=== PATIENT | male | born 1930 | race Caucasian/White ===

== ENCOUNTER 2016-10-01 08:01 | Day surgery (SDC) | payer MEDICARE ==
[~2016-10-01] VITALS: Ht 167.6 cm; Wt 66.8 kg
[~2016-10-01 08:01] MED LIST: ASPI81TA85 PO; ATOR1TAB21 PO; FOLI1TAB4 PO; HYDR25TA6 PO; KEPP250T5 PO; MAGN1TAB25 PO; POTA10CA32 PO; PRAD75CA3 PO
[2016-10-01] MEDS ORDERED: LR 1,000 ML IV ONE (08:30)
[2016-10-01] MEDS ORDERED: PROPOFOL 200 MG/20 ML VIAL As Ordered ONE (09:46)
[2016-10-01] MEDS ORDERED: LIDOCAINE 2% INJ 100 MG/5 ML SDV (FOR ANES.) As Ordered ONE (09:46)
[2016-10-01] MEDS ORDERED: MIDAZOLAM INJ 2 MG/2 ML VIAL (J2250) As Ordered ONE (09:47)
[2016-10-01] MEDS ORDERED: fentaNYL 100 MCG/2 ML INJECTION (J3010) As Ordered ONE (09:48)
[2016-10-01] MEDS ORDERED: ISOVUE-300 61% 50ML VIAL (Q9967) As Ordered ONE (09:53)
[2016-10-01] MEDS ORDERED: AMIODARONE HCL 150 MG/100 ML PREMIXED BAG (NEXTERONE) As Ordered ONE (09:53)
[2016-10-01] MEDS ORDERED: ceFAZolin 2 GM/D5W 50 ML IV BAG (J0690) As Ordered ONE (10:30)
[2016-10-01] MEDS ORDERED: LIDOCAINE 1% SDV INJ 30 ML VIAL As Ordered ONE (10:51)
--- NOTE | 2016-10-01 12:51 | REP ---
Portable chest x-ray: Sitting AP view. History: Postop in PACU. Pacemaker. Comparison study July 14, 2016. Findings: A bipolar pacemaker is inserted in the right heart via the left side. Skin sukhjinder are seen adjacent to the power plant. There is no visible pneumothorax. Cardiomediastinal silhouette is unchanged. The aorta is somewhat tortuous. Impression: Pacemaker inserted. No complication is seen. Signed by Dev Moreland MD 10/01/2016 04:40 P
[2016-10-01] MEDS ORDERED: ACETAMINOPH W/CODEINE #3 TAB UD PO PRN (13:00)
[2016-10-01] MEDS ORDERED: ACETAMINOPHEN TAB 650MG DOSE (2X325MG) PO PRN (13:00)
[2016-10-01] MEDS ORDERED: fentaNYL 100 MCG/2 ML INJECTION (J3010) IV PRN (13:00)
[2016-10-01 13:15] VITALS: BP 102/63
--- NOTE | 2016-10-01 13:15 | RO ---
DATE OF PROCEDURE: 10/01/2016 PROCEDURE: 1. Implantation of permanent dual-chamber pacemaker. 2. Explantation of loop recorder. 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 Amari Velasquez MEDICAL APPLIANCE MAKER: ANESTHESIOLOGIST: Dr. Fallon PREOPERATIVE DIAGNOSIS: Recurrent syncope due to intermittent sinus arrest. POSTOPERATIVE DIAGNOSIS: Recurrent syncope due to intermittent sinus arrest. ANESTHESIA: Monitored local anesthesia. CLINICAL SUMMARY: This 86-year-old, , father of three grown children, retired, resident of [place], [place], has been followed by Dr. Derrick Jasmine for hypertensive heart disease, prior deep vein thrombosis (DVT) and pulmonary embolism with pulmonary hypertension, abnormal electrocardiogram (EKG), and recurrent syncopal spells. Following a negative electrophysiological study on 08/22/2016, an internal loop recorder was implanted. Recently, the patient was found to have suffered a recurrent near syncopal spell with loop recorder documenting significant sinus bradycardia and sinus arrest with asystolic pauses leading to referral to my practice for a permanent dual-chamber pacemaker implant. The patient claims to usually do as he wishes, ultimately limited by fatigue. Prior history of gastroesophageal reflux/heartburn, prior smoker and also suffered de la cruz's lung. He has an intermittent cough, but does not feel particularly limited by dyspnea. Does have random intermittent palpitations of fleeting duration. On examination, the patient is quite hard of hearing, but of medium body build with a slightly barrel-chest. Heart rate 94 beats per minute and regular. Blood pressure 102/72 sitting. Respiratory rate 18 per minute. Body mass index (BMI) 22.9. No pallor or icterus. Normal oral moisture. Multiple missing teeth. Trachea midline. Neck veins were at the level sternal angle. Increased anteroposterior chest diameter with mild pectus excavatum Implantable loop recorder incision left parasternal region. Slightly reduced chest excursion with good air entry over both lung pritchard with no inspiratory rales and only slight prolongation of expiration. Apical impulse not palpable. Heart sounds were distant with a soft systolic ejection murmur. Normal carotid upstrokes. Peripheral pulses were symmetrical and normal. No dependent edema. Abdomen: Soft. Blood work 07/13/2016 showed normal complete blood count with hemoglobin of 13.7 and platelet count 257. Electrolytes were normal with potassium 4.8, BUN 19, creatinine 1.5, and glucose 89. Normal magnesium level. Negative troponin I level. Previously normal ultra sensitive TSH. Chest x-ray on 07/14/2016 showed enlarged heart with calcified aorta, somewhat tortuous prominent central pulmonary arteries, without pulmonary venous congestion, hyperinflated lung pritchard with underlying fibrosis, and minor right basilar atelectasis. Loop recorder anterior chest, IVC filter over lower lumbar spine. Degenerative changes of his shoulder. EKG showed sinus rhythm at 94 BPM, left atrial conduction disturbance, marked first-degree AV block with left axis deviation - left anterior hemiblock, somewhat low voltages with prominent R wave V1 and V2, persistent S waves in V5 and V6 consistent with body habitus and pulmonary disease. No changes from 09/03/2016. DESCRIPTION OF PROCEDURE: With the patient in the fasting state having signed informed consent and receiving Ancef 2 grams IV premedication, the patient was taken to the operating theater. Numerous skin electrodes were applied to facilitate continuous electrocardiographic monitoring. The left subclavian region was prepped and draped in the usual fashion. The skin was infiltrated with 1% Xylocaine and the left axillary vein was catheterized using the micropuncture technique. A 5 cm linear incision was made several centimeters below and parallel to the left clavicle. Dissection was carried down to the level of pectoralis fascia and a pocket was fashioned below the level of incision line. Two bipolar screw-in active fixation steroid eluting pacing leads were then positioned to the right ventricular apex and high right atrial appendage under fluoroscopic electrocardiographic control. The right ventricular lead ([employer], model # LBB4658 M/58, serial # [id number]) measurements were: stimulation threshold 0.6 V/0.4 ms/impedance 1370 ohms. The R wave amplitude measured 8.8 mV. The atrial lead ([employer], model # HOL9234F/52, serial # [id number]) measurements were: stimulation threshold 1.5 V/0.4 ms/impedance 591 ohms. The P wave amplitude measured 2.4 mV. These leads were secured in position with sleeves sutured at their insertion site. They were then connected to a dual-chamber pulse generator ([employer] (Assurity MRI compatible) model # AR2191, serial # [id number]) and appropriate DDD pacing was documented. The generator was placed in the pocket and secured in position with a suture through the upper right-hand corner of the epoxy header. The subcutaneous tissues were approximated using a running chromic suture and the skin was closed using sukhjinder. A dry dressing was applied. The patient was returned to recovery room in good condition. Estimated blood loss 20 mL. No apparent complications. Postoperative chest x-ray showed good lead position with no pneumothorax. Postoperative EKG showed a normal sinus rhythm at 79 BPM with spontaneous AV conduction. The patient will be monitored overnight on telemetry and followup PA and left lateral chest x-ray and EKG will be obtained in the morning. We will also reinterrogate his device at that time, but anticipate he will be able to be discharged prior to noon. DISCHARGE RECOMMENDATIONS AND MEDICATIONS: The patient will be requested to perform light activities of daily living with his left arm and avoid getting his incision wet until his wound is checked and his sukhjinder removed in our office 10/08/2016 at 2:15 p.m. Subsequent followup will be arranged through Dr. Jasmine's office. He has been encouraged to contact us promptly for any abnormal erythema, swelling or discharge. His medications will continue of hydrochlorothiazide 6.25 mg daily, potassium chloride 10 mEq daily, aspirin 81 mg daily, magnesium oxide 400 mg daily, folic acid 1 mg daily, levetiracetam 250 mg twice a day, atorvastatin 10 mg at bedtime, Excedrin Migraine 1 or 2 tablets as needed headache. His Pradaxa 75 mg twice a day will be resumed 10/03/2016. COPY TO: Dr Dar [facility]asmine [facility]
[2016-10-01] MEDS: levETIRAcetam 250MG TABLET (KEPPRA) PO SCH ×2 (13:58→20:59)
[2016-10-01] MEDS: POTASSIUM CHLORIDE 10 MEQ SR TABLET PO SCH (13:58)
[2016-10-01] MEDS: ASPIRIN 81 MG ENTERIC TAB PO SCH (13:58)
[2016-10-01] MEDS: LR 1,000 ML IV SCH (13:58)
[2016-10-01] MEDS: MAGNESIUM OXIDE 400 MG TAB (MAG-OX) PO SCH (13:58)
[2016-10-01] MEDS: FOLIC ACID 1 MG TAB PO SCH (13:58)
[2016-10-01 15:00] VITALS: BP 110/69
[2016-10-01] MEDS: HYDROCHLOROthiazide 6.25MG PER 1/4TAB PO SCH (15:19)
[2016-10-01] MEDS: ATORVASTATIN 20 MG TAB PO SCH (15:19)
[2016-10-01 16:00] VITALS: BP 132/83
[2016-10-01] MEDS: ceFAZolin SOD 1 GM in D5W MINI-BAG PLUS 50 ML IV SCH (18:06)
--- NOTE | 2016-10-01 19:10 | ECGEPIP ---
Stationary ECG Study [facility] Test Date: 2016-10-01 Pat Name: LINWOOD ALMONTE Department: Room: [place] [address] Gender: M [facility] Dentist: CRUZITO : 1930 Requested By: Amari Velasquez Order Number: [id number] Reading MD: Amari Velasquez Measurements Intervals [place] Rate: 77 P: 38 MN: 287 QRS: -36 QRSD: 92 T: 9 QT: 397 QTc: 452 Interpretive Statements Normal sinus rhythm. First-degree AV block. Left axis deviation; left anterior hemiblock? Prominent voltage in aVL; LVH by Torres criteria No prior tracing for comparison. Electronically Signed On 10-01-2016 19:10:09 EDT by Amari Velasquez
[2016-10-01 20:00] VITALS: BP 112/66
[2016-10-02] VITALS: BP 117/69
[2016-10-02] MEDS: ceFAZolin SOD 1 GM in D5W MINI-BAG PLUS 50 ML IV SCH ×2 (03:09→10:39)
[2016-10-02 04:00] VITALS: BP 100/58
[2016-10-02] MEDS: LR 1,000 ML IV SCH (07:00)
[2016-10-02 08:00] VITALS: BP 115/85
[2016-10-02] MEDS: ASPIRIN 81 MG ENTERIC TAB PO SCH (08:31)
[2016-10-02] MEDS: levETIRAcetam 250MG TABLET (KEPPRA) PO SCH (08:31)
[2016-10-02] MEDS: ATORVASTATIN 20 MG TAB PO SCH (08:31)
[2016-10-02] MEDS: POTASSIUM CHLORIDE 10 MEQ SR TABLET PO SCH (08:31)
[2016-10-02] MEDS: MAGNESIUM OXIDE 400 MG TAB (MAG-OX) PO SCH (08:31)
[2016-10-02] MEDS: FOLIC ACID 1 MG TAB PO SCH (08:31)
--- NOTE | 2016-10-02 08:45 | REP ---
PA and lateral chest: Comparison is a portable chest dated 10/01/2016. There is a dual-chamber pacemaker entering from left with surgical sukhjinder adjacent to the pacemaker pack. There is no pneumothorax or pleural fluid collection. Lung pritchard are clear. Cardiac size is normal. The jovon, mediastinum, and bony thorax are unremarkable. A [place] filter is noted in the abdominal vena cava at the inferior film margin. Signed by Tan Soni MD 10/02/2016 08:36 A
[2016-10-02] MEDS: HYDROCHLOROthiazide 6.25MG PER 1/4TAB PO SCH (10:39)
--- NOTE | 2016-10-02 22:32 | ECGEPIP ---
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 Normal appearing QRS complexes and Q waves were interpretable. Consider repeat ECG. Electronically Signed On 10-02-2016 22:32:16 EDT by Sundar Green
[2016-10-03] MEDS ORDERED: DABIGATRAN ETEXILATE 75 MG CAP (PRADAXA) PO SCH (09:00)
== END 2016-10-02 15:57 | disposition home or self-care (01) ==
LOC: M SDC 08:01 → M PCU 13:08 → M SDC 10-02 15:57
PROVIDERS: ATTEND Internal Medicine Cardiovascular Disease
DX: I49.5 Sick sinus syndrome (principal); R55 Syncope and collapse; I11.9 Hypertensive heart disease without heart failure; I27.89 Other specified pulmonary heart diseases; K21.9 Gastro-esophageal reflux disease without esophagitis; R06.02 Shortness of breath; Z79.82 Long term (current) use of aspirin; Z79.899 Other long term (current) drug therapy
CPT/HCPCS: 33208; 33284; 71010; 71020; 76000; 93005; 96374; 96376; C1785; C1898; J0690; J2250; J3010; Q9967

== ENCOUNTER 2018-01-06 06:06 | Day surgery (SDC) | payer MEDICARE ==
[2018-01-06] MEDS: PROPARACAINE 0.5% OPHTH SOL 15ML OS (06:35)
[2018-01-06] MEDS: OFLOXACIN 0.3 % (OCUFLOX) OPTH SOL 5ML OS (06:36)
[2018-01-06] MEDS: PHENYLEPHRINE 2.5% OPHTH SOL 2ML OS (06:36)
[2018-01-06] MEDS: TROPICAMIDE 1% OPHTH SOLN 2ML OS (06:36)
[2018-01-06] MEDS ORDERED: MIDAZOLAM INJ 2 MG/2 ML VIAL (J2250) As Ordered (07:06)
[2018-01-06] MEDS ORDERED: fentaNYL 100 MCG/2 ML INJECTION (J3010) As Ordered (07:06)
[2018-01-06] MEDS: CEFUROXIME 1MG/0.1ML INTRACAMERAL INJ As Ordered (07:32)
[2018-01-06] MEDS: BALANCED SALT IRRIGATION SOLUTION 500ML BAG (FOR OR EYE MACHINE) As Ordered (07:32)
[2018-01-06] MEDS: DUOVISC (0.50ML VISCOAT/0.55ML PROVISC) OPHTH KIT As Ordered ×2 (07:32→07:50)
[2018-01-06] MEDS: POVIDONE-IODINE 5% OPHTH PREP SOL 30ML As Ordered (07:32)
[2018-01-06] MEDS: LIDOCAINE 0.75%/EPINEPHRINE 0.025% IN BSS 1ML SYR INTRACAMERAL (OR ONLY) As Ordered (07:32)
== END 2018-01-06 08:40 | disposition home or self-care (01) ==
LOC: M SDC 06:06
DX: H25.11 Age-related nuclear cataract, right eye (principal); H40.10X2 Unspecified open-angle glaucoma, moderate stage; H52.221 Regular astigmatism, right eye; I10 Essential (primary) hypertension; E78.5 Hyperlipidemia, unspecified; Z95.0 Presence of cardiac pacemaker; Z79.01 Long term (current) use of anticoagulants; Z79.899 Other long term (current) drug therapy
CPT/HCPCS: 66984

== ENCOUNTER 2018-01-20 08:15 | Day surgery (SDC) | payer MEDICARE ==
[~2018-01-20 08:15] MED LIST changes: -ASPI81TA85 PO; -ATOR1TAB21 PO; -FOLI1TAB4 PO; -HYDR25TA6 PO; -KEPP250T5 PO; -MAGN1TAB25 PO; +MIDAZOLAM INJ 2 MG/2 ML VIAL (J2250) As Ordered; -POTA10CA32 PO; -PRAD75CA3 PO
[2018-01-20] MEDS: PROPARACAINE 0.5% OPHTH SOL 15ML OD (09:39)
[2018-01-20] MEDS: PHENYLEPHRINE 2.5% OPHTH SOL 2ML OD (09:39)
[2018-01-20] MEDS: TROPICAMIDE 1% OPHTH SOLN 2ML OD (09:39)
[2018-01-20] MEDS: OFLOXACIN 0.3 % (OCUFLOX) OPTH SOL 5ML OD (09:39)
[2018-01-20] MEDS ORDERED: fentaNYL 100 MCG/2 ML INJECTION (J3010) As Ordered (10:40)
[2018-01-20] MEDS: BALANCED SALT IRRIGATION SOLUTION 500ML BAG (FOR OR EYE MACHINE) As Ordered (10:46)
[2018-01-20] MEDS: CEFUROXIME 1MG/0.1ML INTRACAMERAL INJ As Ordered (10:46)
[2018-01-20] MEDS: LIDOCAINE 0.75%/EPINEPHRINE 0.025% IN BSS 1ML SYR INTRACAMERAL (OR ONLY) As Ordered (10:46)
[2018-01-20] MEDS: DUOVISC (0.50ML VISCOAT/0.55ML PROVISC) OPHTH KIT As Ordered ×2 (10:46)
[2018-01-20] MEDS: POVIDONE-IODINE 5% OPHTH PREP SOL 30ML As Ordered (10:46)
== END 2018-01-20 11:50 | disposition home or self-care (01) ==
LOC: M SDC 08:15
DX: H25.11 Age-related nuclear cataract, right eye (principal); H40.1112 Primary open-angle glaucoma, right eye, moderate stage; I10 Essential (primary) hypertension; E78.00 Pure hypercholesterolemia, unspecified; Z79.899 Other long term (current) drug therapy; Z79.01 Long term (current) use of anticoagulants; Z79.82 Long term (current) use of aspirin; Z86.718 Personal history of other venous thrombosis and embolism; Z95.0 Presence of cardiac pacemaker
CPT/HCPCS: 66984

== ENCOUNTER 2018-07-30 21:37 | Inpatient (IN) | payer MEDICARE ==
[~2018-07-30] VITALS: Ht 167.6 cm; Wt 61.1 kg
[~2018-07-30 21:37] MED LIST changes: +AMIO200T PO; +ASPI81TA85 PO; +ATOR1TAB21 PO; +ELIQ2.5T PO; +FOLI1TAB11 PO; +FURO40TA2 PO; +HYDR25TA6 PO; +KEPP250T5 PO; +MAGN1TAB26 PO; +METO1TAB87 PO; -MIDAZOLAM INJ 2 MG/2 ML VIAL (J2250) As Ordered; +POTA10CA32 PO; +POTA1TAB23 PO; +PRAD75CA5 PO; +PRAV20TA2 PO
[2018-07-30 23:59] VITALS: BP 115/59
[2018-07-31] MEDS ORDERED: LR 1,000 ML IV SCH (00:15)
[2018-07-31] MEDS ORDERED: GLUCAGON FOR INJ 1 MG VIAL (J1610) SC PRN (00:15)
[2018-07-31] MEDS ORDERED: MOM 30ML SUSPENSION UDC PO PRN (00:15)
[2018-07-31] MEDS ORDERED: ACETAMINOPHEN TAB 650MG DOSE (2X325MG) PO PRN (00:15)
[2018-07-31] MEDS ORDERED: DEXTROSE 50% 50 ML SYRINGE IV PRN (00:15)
[2018-07-31] MEDS ORDERED: GLUCOSE 4 GM CHEW TABLET PO PRN (00:15)
[2018-07-31] MEDS ORDERED: MAALOX 30 ML SUSP *UDC PO PRN (00:15)
[2018-07-31 00:26] LABS: HEMATOCRIT 32.3 % (42.0-52.0); HEMOGLOBIN 10.6 g/dl (13.5-17.5); MEAN CORPUSCULAR HEMOGLOBIN 32.1 pg (27.0-33.0); MEAN CORPUSCULAR HGB CONC 32.8 g/dl (32.0-36.5); MEAN CORPUSCULAR VOLUME 97.9 fl (80.0-96.0); PLATELET COUNT, AUTOMATED 215 10^3/uL (150-450); WHITE BLOOD COUNT 24.9 10^3/uL (4.0-10.0)
[2018-07-31] MEDS ORDERED: LEVE250T5 PO (00:40)
[2018-07-31] MEDS ORDERED: KEPP250T5 PO (00:40)
[2018-07-31] MEDS ORDERED: AMIO10TA PO (00:40)
[2018-07-31] MEDS ORDERED: BACK500T PO (00:46)
[2018-07-31] MEDS ORDERED: EXCETAB44 PO (00:47)
[2018-07-31] MEDS ORDERED: PATIENT COMMENTS (00:49)
[2018-07-31 00:51] LABS: ALBUMIN 2.2 GM/DL (3.2-5.2); BILIRUBIN,TOTAL 0.8 MG/DL (0.2-1.0); CALCIUM LEVEL 7.7 MG/DL (8.8-10.2); CREATININE FOR GFR 1.78 MG/DL (0.70-1.30); GLOMERULAR FILTRATION RATE 38.7 (>35); POTASSIUM SERUM 3.7 MEQ/L (3.5-5.1)
[2018-07-31] MEDS ORDERED: VANCOMYCIN HCL 1,000 MG, VIAL MATE ADAPTER 1 EACH in D5W 250 ML IV ONE (01:00)
[2018-07-31 01:21] LABS: INR 1.33; PROTHROMBIN TIME 16.7 SECONDS (12.1-14.4)
--- NOTE | 2018-07-31 01:43 | HPEPDOC ---
General Date of Admission July 30, 2018 at 23:32 Chief Complaint The patient is a 88-year-old male admitted with a reason for visit of Pneumonia ,Cellulitis. Source: Patient, RN/MD, Old records History of Present Illness Mr. Hoang is an 88 years old man who presented to [facility] ER y afternoon for evaluation of progressive pain and swelling on the left Buttock after reportedly bitten by a bee. In the ER, pt was afebrile and hemodynamically stable. he had a WBC of 25K and a Lactate level of 2.5. There is very tender 4 x cm hard subcutaneous induration with central skin opening and yellow pus in the area. He was given a dose IV Zosyn in the ER and transferred here for further care because they did not have bed for admission at [facility]. Pt has no signs of volume overload. Mental status is normal. CXR at [facility] accidently showed RLL infiltrates. Pt c/o sneezes only; no cough, SOB or chest pain. Home Medications Scheduled Amiodarone HCl (Pacerone) 100 Mg Tablet, 100 MG PO DAILY, (Reported) Apixaban (Eliquis) 2.5 Mg Tab, 2.5 MG PO BID, (Reported) Aspirin (Aspir 81) 81 Mg Tab, 81 MG PO DAILY, (Reported) Folic Acid (Folic Acid) 1 Mg Tab, 1 MG PO DAILY, (Reported) Furosemide (Furosemide) 40 Mg Tab, 40 MG PO DAILY, (Reported) Levetiracetam (Levetiracetam) 250 Mg Tablet, 250 MG PO BID, (Reported) Magnesium Oxide (Magnesium Oxide) 400 Mg Tab, 400 MG PO DAILY, (Reported) Metoprolol Tartrate (Metoprolol Tartrate) 25 Mg Tab, 25 MG PO BID, (Reported) Potassium Chloride (Potassium Chloride) 10 Meq Tab, 10 MEQ PO DAILY, (Reported) Pravastatin Sodium (Pravastatin Sodium) 20 Mg Tab, 20 MG PO DAILY, (Reported) Scheduled PRN Acetaminophen/Caffeine (Excedrin Tension Headache Cplt) 1 Each Tablet, 1 EACH PO Q6H PRN for HEADACHE OR PAIN, (Reported) Miscellaneous Medications [Patient Comments] , (Reported) PATIENT STATES HE'S REASONABLY SURE THE LAST TIME HE TOOK HIS MEDICATIONS WAS 2 DAYS AGO. 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, HTN, AF, COPD, HLD Surgical History Appendectomy Family History Significant Family History: No pertinent family hx Social History * Smoker: Denies Alcohol: Denies Drugs: denies A-FIB/CHADSVASC A-FIB History Current/History of A-Fib/PAF?: Yes Current Oral Anticoagulant The: No Treatment Reason Anticoagulant not given: Recent/upcomin procedure Review of Systems Constitutional: Reports: Chills; Denies: Fever, Malaise Eyes: Denies: Pain ENT: Denies: Head Aches Skin: Reports: Lesions; Denies: Rash Pulmonary: Denies: Dyspnea, Cough Cardiovascular: Denies: Chest Pain, Edema Gastrointestinal: Denies: Nausea, Vomiting, Abdominal Pain, Diarrhea Genitourinary: Denies: Dysuria Musculoskeletal: Denies: Neck Pain, Back Pain Neurological: Denies: Weakness, Numbness Psych: Reports: Mood Normal; Denies: Anxiety Physical Examination General Exam: Positive: Alert, Cooperative, No Acute Distress Eye Exam: Positive: PERRLA ENT Exam: Positive: Atraumatic Neck Exam: Positive: Supple; Negative: JVD Chest Exam: Positive: Clear to auscultation, Normal air movement Heart Exam: Positive: Rate Normal, Regular Rhythm Abdomen Exam: Positive: Normal bowel sounds, Soft; Negative: Tenderness Extremity Exam: Positive: Normal pulses; Negative: Edema Skin Exam: Positive: Nl turgor and temperature, Lesion (as mentioned in HPI) Neuro Exam: Positive: Normal Speech, Strength at 5/5 X4 ext Psych Exam: Positive: Mental status NL, Mood NL Vital Signs Vital Signs Date Time Temp Pulse Resp B/P (MAP) Pulse Ox O2 Delivery O2 Flow Rate FiO2 07/30/18 23:59 100.4 80 18 115/59 (77) 94 Laboratory Data Labs 24H Laboratory Tests 2 07/31/18 00:19: Nucleated Red Blood Cells % (auto) 0.0, Prothrombin Time 16.7H, Prothromb Time International Ratio 1.33, Anion Gap 8, Glomerular Filtration Rate 38.7, Lactic Acid Level 1.6, Blood Urea Nitrogen 25H, Creatinine 1.78H, Sodium Level 139, Potassium Level 3.7, Chloride Level 102, Carbon Dioxide Level 29, Calcium Level 7.7L, Aspartate Amino Transf (AST/SGOT) 12, Alanine Aminotransferase (ALT/SGPT) 14, Alkaline Phosphatase 94, Total Bilirubin 0.8, Total Protein 7.0, Albumin 2.2L, Albumin/Globulin Ratio 0.46L CBC/BMP Laboratory Tests 07/31/18 00:19 Red Blood Count 3.30 L, Mean Corpuscular Volume 97.9 H, Mean Corpuscular Hemoglobin 32.1, Mean Corpuscular Hemoglobin Concent 32.8, Red Cell Distribution Width 13.9, Calcium Level 7.7 L, Aspartate Amino Transf (AST/SGOT) 12, Alanine Aminotransferase (ALT/SGPT) 14, Alkaline Phosphatase 94, Total Bilirubin 0.8, Total Protein 7.0, Albumin 2.2 L Microbiology Microbiology 07/31/18 Blood Culture, Received Pending Assessment/Plan Left Buttock Cellulitis and Abscess - Admit to inpatient - IV Vanco and Zosyn; Wound, blood c/s - Surgery consulted with Dr. Pond; I&D in the morning. NPO now; gentle IV fluid - CT - Hold Xarelto - Continue home meds for other chronic illness; avoid diuretic and excessive BP meds for now. RLL Infiltrates reported on Cartage CXR; pt has no symptoms of Pneumonia - CT chest; pt already on abx for abscess. AF, DVT, PE - Holding Xarelto for now for procedure in the morning - Heparin sc in the meantime. Plan / VTE VTE Prophylaxis Ordered?: Yes VTE Exclusion Mechanical Proph: N/A:VTE Prophy Ordered VTE Exclusion Pharmacological: N/A:VTE Prophy Ordered Plan Anticipated Discharge: Home DASH LIM MD July 31, 2018 01:42
--- NOTE | 2018-07-31 02:45 | REPVR ---
EXAM: CT Chest Without Contrast EXAM DATE/TIME: 07/31/2018 1:53 AM CLINICAL HISTORY: 88 years old, male; Condition or disease; Lung condition and disease; Pneumonia; Additional info: Evalaute for left buttock abscess TECHNIQUE: Imaging protocol: Axial computed tomography images of the chest without intravenous contrast. Coronal and sagittal reformatted images were created and reviewed. Radiation optimization: All CT scans at this facility use at least one of these dose optimization techniques: automated exposure control; mA and/or kV adjustment per patient size (includes targeted exams where dose is matched to clinical indication); or iterative reconstruction. COMPARISON: CR Chest, 2 view PA, Lat 10/02/2016 8:15 AM FINDINGS: Tubes, catheters and devices: Pacemaker in position from the left. Lungs: Slight interstitial prominence with mild fibro-atelectatic change, greatest in the lower lobes. There are scattered areas of infiltrate and consolidation with some having a nodular appearance nodules are not excluded. Pleural space: Trace bilateral pleural effusions. Heart: Coronary artery calcifications are present. The left atrium measures 4.5 cm in its AP dimension. Pulmonary arteries: The main pulmonary artery measures 26 mm. Aorta: The ascending thoracic aorta measures 36 mm. Lymph nodes: Small scattered mediastinal nodes which are within normal limits. Bones/joints: Ankylosis of much of the thoracic spine. Soft tissues: Unremarkable. IMPRESSION: 1. Borderline cardiomegaly with pacemaker. 2. Slight interstitial prominence with mild fibro-atelectatic change, greatest in the lower lobes and scattered areas of infiltrate and consolidation. Some have a nodular appearance and pulmonary nodules are not excluded. 3. Trace bilateral pleural effusions. Electronically signed by: Laureano Gu On 07/31/2018 02:44:42 AM
--- NOTE | 2018-07-31 02:51 | REPVR ---
EXAM: CT Abdomen and Pelvis Without Contrast EXAM DATE/TIME: 07/31/2018 1:53 AM CLINICAL HISTORY: 88 years old, male; Condition or disease; Abscess; Abscess location: Left buttock; Additional info: Abscess, R/O nectrotizing TECHNIQUE: Imaging protocol: Axial computed tomography images of the abdomen and pelvis without contrast. Coronal and sagittal reformatted images were created and reviewed. Radiation optimization: All CT scans at this facility use at least one of these dose optimization techniques: automated exposure control; mA and/or kV adjustment per patient size (includes targeted exams where dose is matched to clinical indication); or iterative reconstruction. COMPARISON: No relevant prior studies available. FINDINGS: Lungs: Slight interstitial prominence with mild bibasilar infiltrates, atelectasis and consolidation, left greater than right. There is question of a right middle lobe nodule measuring 5 mm. Pleural space: Trace bilateral pleural effusions. ABDOMEN: Liver: Normal. No mass. Gallbladder and bile ducts: Borderline distention of the gallbladder measuring 4.5 cm in diameter no gallstones by CT. Pancreas: Normal. No ductal dilation. Spleen: Normal. No splenomegaly. Adrenals: Normal. No mass. Kidneys and ureters: Normal. No hydronephrosis. Stomach and bowel: There is colonic diverticulosis without evidence of diverticulitis. Appendix: There are no changes of appendicitis. A normal appendix is not seen. PELVIS: Bladder: Unremarkable as visualized. Reproductive: Unremarkable as visualized. ABDOMEN and PELVIS: Intraperitoneal space: Normal. No free air. No significant fluid collection. Bones/joints: Grade 2 anterior listhesis of L5 relative to S1 with prominent interspace narrowing. Soft tissues: Subcutaneous induration and confluence in the medial buttocks, left greater than right with skin thickening. No definite abscess seen. Vasculature: There is an IVC filter in position. Lymph nodes: Normal. No enlarged lymph nodes. IMPRESSION: 1. Subcutaneous induration and confluence in the medial buttocks, left greater than right skin thickening which may reflect cellulitis or possibly phlegmon. No definite abscess is seen. 2. Trace bilateral pleural effusions with slight basal interstitial prominence and mild bibasilar infiltrates, atelectasis and consolidation, left greater than right. 3. IVC filter in position. 4. Borderline distention of the gallbladder. 5. Colonic diverticulosis without diverticulitis. Electronically signed by: Laureano Gu On 07/31/2018 02:51:11 AM
[2018-07-31 04:00] VITALS: BP 137/69
[2018-07-31] MEDS: PIPERACILLIN/TAZOBACTAM SOD 3.375 GM in D5W MINI-BAG PLUS 50 ML IV SCH ×4 (04:06→20:30)
--- NOTE | 2018-07-31 05:52 | PHACANCOPD ---
PHARMACY VANCOMYCIN DOSING Pt Demographics Demographics Patient Age:88 , Weight:63.500 , Gender: male Adjusted Body Weight Date: 07/31/18, Adjusted Body Weight: [63.5] Kg(ACTUAL WT) Vancomycin Vancomycin indication: BUTTOCK ABCESS,PNA Vancomycin Target Ranges: 15-20 mcg/ml Vancomycin Load Y/N: No Load Dose Date Time Vancomycin Load Dose: Date: Time: Vancomycin Dose Date: 07/31/18. Current Vancomycin Dose: [1 GM Q24H] Intermittent Dosing?: No Labs Labs Laboratory Tests 07/31/18 00:19 Red Blood Count 3.30 L, Mean Corpuscular Volume 97.9 H, Mean Corpuscular Hemoglobin 32.1, Mean Corpuscular Hemoglobin Concent 32.8, Red Cell Distribution Width 13.9, Calcium Level 7.7 L, Aspartate Amino Transf (AST/SGOT) 12, Alanine Aminotransferase (ALT/SGPT) 14, Alkaline Phosphatase 94, Total Bilirubin 0.8, Total Protein 7.0, Albumin 2.2 L Micro Microbiology 07/31/18 Blood Culture, Received Pending Creatinine Clearance Date:07/31/18. Creatinine Clearance: [26.3].CALCULATED Assessment and Plan Maintaining Current Dose?: Yes Reason for dose change: No Dose Change Pharmacist Note Pharmacist Note Date: 07/31/18. Pharmacist note:88 YOM transferred [facility] w/worsening pain/swelling in buttock area following insect bite.SCR=1.78,Calculated CRCL=26.3. ED administered 1 gram Vancomycin .Will continue with 1 gram iv q24h to begin 07/31@1999.Fri trough is scheduled for 08/01 1900-will continue to follow [facility] July 31, 2018 05:51
[2018-07-31] MEDS ORDERED: LIDOCAINE 1% MDV 20ML VIAL As Ordered ONE (07:42)
[2018-07-31] MEDS ORDERED: LIDOCAINE 1% MDV 20ML VIAL SC ONE (07:45)
[2018-07-31 07:47] VITALS: BP 127/61
[2018-07-31 08:05] LABS: HEMATOCRIT 34.5 % (42.0-52.0); HEMOGLOBIN 11.5 g/dl (13.5-17.5); MEAN CORPUSCULAR HEMOGLOBIN 32.6 pg (27.0-33.0); MEAN CORPUSCULAR HGB CONC 33.3 g/dl (32.0-36.5); MEAN CORPUSCULAR VOLUME 97.7 fl (80.0-96.0); PLATELET COUNT, AUTOMATED 218 10^3/uL (150-450); RED BLOOD COUNT 3.53 10^6/uL (4.30-6.10); WHITE BLOOD COUNT 29.1 10^3/uL (4.0-10.0)
[2018-07-31 08:31] LABS: CALCIUM LEVEL 8.2 MG/DL (8.8-10.2); CREATININE FOR GFR 1.66 MG/DL (0.70-1.30); GLOMERULAR FILTRATION RATE 41.9 (>35); POTASSIUM SERUM 3.5 MEQ/L (3.5-5.1)
[2018-07-31] MEDS: AMIODARONE 100MG TABLET (PACERONE) PO SCH (09:01)
[2018-07-31] MEDS: levETIRAcetam 250MG TABLET (KEPPRA) PO SCH ×2 (09:01→20:32)
[2018-07-31] MEDS: FOLIC ACID 1 MG TAB PO SCH (09:01)
[2018-07-31] MEDS: MAGNESIUM OXIDE 400 MG TAB (MAG-OX) PO SCH (09:01)
[2018-07-31] MEDS: ASPIRIN 81 MG ENTERIC TAB PO SCH (09:01)
[2018-07-31] MEDS: METOPROLOL TART 25 MG TABLET PO SCH ×2 (09:02→20:33)
--- NOTE | 2018-07-31 11:10 | CR ---
DATE OF CONSULTATION: 07/31/2018 REASON FOR CONSULTATION: Left buttock abscess. HISTORY OF PRESENT ILLNESS: The patient is an 88-year-old male who presented to [facility] emergency room yesterday with complaints of pain and swelling in the left buttock. He claims that he was stung by a bee about a week ago with increasing pain and swelling. He finally went to the emergency room (ER) complaining that he was not feeling well. He was found to be afebrile with a white count 25,000, elevated lactic acid level. He also a very tender lump in his left buttocks, so he was transferred here for evaluation because they did not have any beds for admission at [facility]. Currently, he can complains of lots of pain in his left upper abdomen as well as his left buttock. He claims that he cannot lay on it you know, he is lying on it as he was talking to me. No other complaints. Denies nausea, vomiting. No fevers or chills. No problems with urination or bowel movements. PAST MEDICAL HISTORY: Positive for congestive heart failure (CHF), deep venous thrombosis (DVT), pulmonary embolism (PE), hypertension, atrial fibrillation (AFib), chronic obstructive pulmonary disease (COPD), hyperlipidemia. PAST SURGICAL HISTORY: Appendectomy. ALLERGIES: NONE. HOME MEDICATIONS: Please see med rec. SOCIAL HISTORY: Denies drug, alcohol or tobacco abuse. FAMILY HISTORY: Noncontributory. REVIEW OF SYSTEMS: Pertinent positives and negatives as stated in the HPI. PHYSICAL EXAMINATION: General: Alert and oriented times three. No acute distress. Vital signs: Temperature 100.9, pulse 85, respirations 20, blood pressure 127/61, pulse oximetry 91% on room air. HEENT: Pupils equal, round, reactive to light and accommodation. Heart: S1, S2, regular rate and rhythm. Lungs: Clear to auscultation bilaterally. Abdomen: Soft, nontender, nondistended. Extremities: There is a large 5 cm area of erythema, induration over the left buttock. There is about 1.5 cm irregular shaped area in the middle of this that is nonblanching and appears to be early necrosis of the skin. There is oozing from the skin in this area but no large volumes of drainage. There is a significant induration not necessarily any discrete fluid collection palpable. LABORATORY DATA: White count 24.9 at midnight, up to 29.1 this morning, hemoglobin 11.5, platelets 218. Potassium 3.5. Creatinine 1.66. IMAGING: CT abdomen and pelvis shows subcutaneous induration and confluence in the medial buttocks, left greater than right. Skin thickening may reflect cellulitis or possible phlegmon. No definite abscess is seen. Trace bilateral pleural effusions with slight basal interstitial prominence. Inferior vena cava (IVC) filter is in position. Borderline distension of the gallbladder. Colonic diverticulosis. ASSESSMENT AND PLAN: The patient is an 88-year-old male with a large left buttock abscess. Recommendation is to proceed with incision and drainage. This can be done at the bedside. I planned a bedside procedure. The nursing staff was available to help me do the bedside incision and drainage. After obtaining consent from the patient, time-out was done to confirm proper patient and proper procedure. Following that the left buttock was sterilely prepped and draped with Betadine. Next, 5 mL of 1% lidocaine was injected into the abscess in the center of the necrotic portion. Once that was completed, a cruciate incision about 1 x 1 cm was made using a #15 blade scalpel. Once that was completed, cultures were obtained. Probing with a cotton tip applicator did show some slightly purulent bloody fluid. No large fluid collections of any kind. I irrigated with another 10 mL of lidocaine just to flush out what was there, covered the whole area with 4 x 4s and tape, thus ending procedure. The patient tolerated procedure well, had some improvement from his pain likely from the local was injected in the area,. We will order him a regular diet for now and continue to monitor him as appropriate.
[2018-07-31 12:00] VITALS: BP 109/55
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
[2018-07-31 16:00] VITALS: BP 105/56
[2018-07-31 20:00] VITALS: BP 115/61
[2018-07-31] MEDS: APIXABAN 2.5 MG TAB (ELIQUIS) PO SCH (20:32)
[2018-07-31] MEDS: VANCOMYCIN HCL 1,000 MG, VIAL MATE ADAPTER 1 EACH in D5W 250 ML IV SCH (20:34)
[2018-07-31] MEDS ORDERED: HEPARIN SOD (PORCINE) 5000 UNITS/ML VIAL SQ SCH (21:00)
[2018-07-31 23:59] VITALS: BP 112/57
[2018-08-01] MEDS: PIPERACILLIN/TAZOBACTAM SOD 3.375 GM in D5W MINI-BAG PLUS 50 ML IV SCH ×4 (02:51→21:21)
[2018-08-01 04:00] VITALS: BP 118/72
[2018-08-01 05:41] LABS: HEMATOCRIT 32.7 % (42.0-52.0); MEAN CORPUSCULAR HEMOGLOBIN 32.4 pg (27.0-33.0); MEAN CORPUSCULAR HGB CONC 33.6 g/dl (32.0-36.5); MEAN CORPUSCULAR VOLUME 96.2 fl (80.0-96.0); PLATELET COUNT, AUTOMATED 230 10^3/uL (150-450); WHITE BLOOD COUNT 22.6 10^3/uL (4.0-10.0)
[2018-08-01 05:44] LABS: CALCIUM LEVEL 8.4 MG/DL (8.8-10.2); CREATININE FOR GFR 1.92 MG/DL (0.70-1.30); GLOMERULAR FILTRATION RATE 35.4 (>35); POTASSIUM SERUM 3.4 MEQ/L (3.5-5.1)
[2018-08-01 07:54] VITALS: BP 151/68
[2018-08-01] MEDS: MAGNESIUM OXIDE 400 MG TAB (MAG-OX) PO SCH (09:19)
[2018-08-01] MEDS: FOLIC ACID 1 MG TAB PO SCH (09:19)
[2018-08-01] MEDS: PRAVASTATIN 20 MG TAB PO SCH (09:19)
[2018-08-01] MEDS: ASPIRIN 81 MG ENTERIC TAB PO SCH (09:19)
[2018-08-01] MEDS: levETIRAcetam 250MG TABLET (KEPPRA) PO SCH ×2 (09:19→20:43)
[2018-08-01] MEDS: APIXABAN 2.5 MG TAB (ELIQUIS) PO SCH ×2 (09:19→20:42)
[2018-08-01] MEDS: AMIODARONE 100MG TABLET (PACERONE) PO SCH (09:20)
[2018-08-01] MEDS: METOPROLOL TART 25 MG TABLET PO SCH ×2 (09:20→20:43)
--- NOTE | 2018-08-01 10:40 | IPNPDOC ---
Date Seen The patient was seen on 08/01/18. Progress Note SUBJECTIVE: Patient tells me that his bottom is not hurting as much. He complains of feeling weak. Otherwise patient denies chest pain, shortness, breath, nausea, vomiting, OBJECTIVE PHYSICAL EXAMINATION: VITAL SIGNS: Please see below. GENERAL: Pleasant disheveled elderly man sitting up in bed awake alert oriented speaking in complete sentences no acute distress eating breakfast HEENT: Mildly dry mucous membranes no elevation and CVP CARDIOVASCULAR: S1 S2 regular no additional heart sounds appreciated. RESPIRATORY: Clear to auscultation bilaterally. ABDOMINAL: Bowel sounds present abdomen soft and nontender EXTREMITIES: No clubbing, cyanosis, edema, left buttock abscess dressing c/d/i NEUROLOGICAL: Spontaneously moves all 4 extremities cranial 2 through 12 grossly intact, no gross focal deficits appreciated PSYCHOLOGICAL: Appropriate LABORATORY DATA, MICROBIOLOGY: Please see below. IMAGING STUDIES: CT chest:1. Borderline cardiomegaly with pacemaker. 2. Slight interstitial prominence with mild fibro-atelectatic change, greatest in the lower lobes and scattered areas of infiltrate and consolidation. Some have a nodular appearance and pulmonary nodules are not excluded. 3. Trace bilateral pleural effusions. CT abdomen:1. Subcutaneous induration and confluence in the medial buttocks, left greater than right skin thickening which may reflect cellulitis or possibly phlegmon. No definite abscess is seen. 2. Trace bilateral pleural effusions with slight basal interstitial prominence and mild bibasilar infiltrates, atelectasis and consolidation, left greater than right. 3. IVC filter in position. 4. Borderline distention of the gallbladder. 5. Colonic diverticulosis without diverticulitis. DVT prophylaxis ordered: Haritha ASSESSMENT AND PLAN: This is a 88-year-old man with large left buttock abscess. PROBLEMS: 1. Large left buttock abscess: Gen. surgery's help is greatly appreciated the patient is status post I&D, he did have some drainage following the procedure and does appear to have less tension there and is improving. He complains of wea kness today and as such I will have PT work with him and conduct a home safety eval.. He does still have some intermittent low grade fever, he has been started on broad-spectrum antibiotics, we'll follow-up his cultures. However should he continue to remain stable suspect to be discharged home on by mouth doxycycline 100 mg twice a day to complete a seven-day course with outpatient general surgery follow-up as early as tomorrow. 2. Atrial fibrillation: Rate controlled with metoprolol and amiodarone, I'll restart his home anticoagulation. 3. History of DVT PE:: He is status post an IVC filter I'm restarting his home anticoagulation at this time. 4. Congestive heart failure: Chronic well compensated no active issue at this time his home diuretic is on hold. 5. Hypertension: He is continued on metoprolol BP is well controlled 6. Dyslipidemia: Continue with statin 7. CKD: Mildly elevated Cr. con't to monitor, he did receive some IVF on admission, not volume overloaded, if worsens would consider restarting his home direutic sooner rather than later. DISPOSITION: Possibly home with her next 24-48 hours. Pending PT VS, I&O, 24H, Fishbone Vital Signs/I&O Vital Signs Date Time Temp Pulse Resp B/P (MAP) Pulse Ox O2 Delivery O2 Flow Rate FiO2 08/01/18 09:20 70 151/68 08/01/18 07:54 97.4 17 91 I&O- Last 24 Hours up to 6 AM 08/01/18 06:00 Intake Total 1560 ml Output Total 900 ml Balance 660 ml Laboratory Data 24H LABS Laboratory Tests 2 08/01/18 05:06: Nucleated Red Blood Cells % (auto) 0.0, Anion Gap 8, Glomerular Filtration Rate 35.4, Blood Urea Nitrogen 33H, Creatinine 1.92H, Sodium Level 137, Potassium [place] 3.4L, Chloride Level 101, Carbon Dioxide Level 28, Calcium Level 8.4L CBC/BMP Laboratory Tests 08/01/18 05:06 Red Blood Count 3.40 L, Mean Corpuscular Volume 96.2 H, Mean Corpuscular Hemoglobin 32.4, Mean Corpuscular Hemoglobin Concent 33.6, Red Cell Distribution Width 14.0, Calcium Level 8.4 L Microbiology Microbiology 07/31/18 Blood Culture - Preliminary, Resulted No growth after 24 hours . All specim... 07/31/18 Gram Stain - Final, Resulted 07/31/18 Wound Culture, Resulted Pending CAMILA DECKER MD August 01, 2018 10:40
[2018-08-01 11:55] VITALS: BP 142/71
[2018-08-01 14:00] VITALS: BP 122/64
[2018-08-01 18:00] VITALS: BP 122/77
[2018-08-01] MEDS: VANCOMYCIN HCL 1,000 MG, VIAL MATE ADAPTER 1 EACH in D5W 250 ML IV SCH (20:03)
[2018-08-01 22:00] VITALS: BP 127/76
[2018-08-02] MEDS: PIPERACILLIN/TAZOBACTAM SOD 3.375 GM in D5W MINI-BAG PLUS 50 ML IV SCH (02:54)
[2018-08-02 05:55] LABS: HEMATOCRIT 34.4 % (42.0-52.0); HEMOGLOBIN 11.6 g/dl (13.5-17.5); MEAN CORPUSCULAR HEMOGLOBIN 31.6 pg (27.0-33.0); MEAN CORPUSCULAR HGB CONC 33.7 g/dl (32.0-36.5); MEAN CORPUSCULAR VOLUME 93.7 fl (80.0-96.0); PLATELET COUNT, AUTOMATED 274 10^3/uL (150-450); RED BLOOD COUNT 3.67 10^6/uL (4.30-6.10); WHITE BLOOD COUNT 22.1 10^3/uL (4.0-10.0)
[2018-08-02 06:00] VITALS: BP 139/77
[2018-08-02 06:29] LABS: CALCIUM LEVEL 8.4 MG/DL (8.8-10.2); CREATININE FOR GFR 2.21 MG/DL (0.70-1.30); GLOMERULAR FILTRATION RATE 30.1 (>35); POTASSIUM SERUM 4.2 MEQ/L (3.5-5.1)
[2018-08-02] MEDS: APIXABAN 2.5 MG TAB (ELIQUIS) PO SCH ×2 (09:24→21:24)
[2018-08-02] MEDS: FOLIC ACID 1 MG TAB PO SCH (09:24)
[2018-08-02] MEDS: PRAVASTATIN 20 MG TAB PO SCH (09:24)
[2018-08-02] MEDS: MAGNESIUM OXIDE 400 MG TAB (MAG-OX) PO SCH (09:25)
[2018-08-02] MEDS: levETIRAcetam 250MG TABLET (KEPPRA) PO SCH ×2 (09:25→21:24)
[2018-08-02] MEDS: AMIODARONE 100MG TABLET (PACERONE) PO SCH (09:25)
[2018-08-02] MEDS: ASPIRIN 81 MG ENTERIC TAB PO SCH (09:25)
[2018-08-02] MEDS: METOPROLOL TART 25 MG TABLET PO SCH ×2 (09:26→21:27)
--- NOTE | 2018-08-02 10:13 | IPNPDOC ---
Subjective Date Seen The patient was seen on 08/02/18. Subjective Chief Complaint/HPI Patient complaining of pain in the right buttock but is much better than previously General: Denies: ROS Unobtainable, Chills, Night Sweats, Fatigue, Malaise, Normal Appetite, Other Symptoms Constitutional: Denies: Chills, Fever, Malaise, Night Sweats, Weakness, Fatigue, Weight Loss, Lethargy, Other Eyes: Denies: Pain, Vision change, Conjunctivae inflammation, Eyelid inflammat ion, Redness, Other ENT: Denies: Head Aches, Ear Pain, Dysphagia, Sinus Congestion, Post Nasal Drip, Sore Throat, Epistaxis, Other Symptoms Skin: Denies: Rash, Lesions, Jaundice, Bruising, Itching, Dry, Breakdown, Nail Changes, Other Pulmonary: Denies: Dyspnea, Cough, Pleuritic Chest Pain, Other Symptoms Cardiovascular: Denies: Chest Pain, Palpitations, Orthopnea, Paroxysmal Noc. Dyspnea, Edema, Lt Headedness, Other Symptoms Gastrointestinal: Denies: Nausea, Vomiting, Abdominal Pain, Diarrhea, Constipation, Melena, Hematochezia, Other Symptoms Genitourinary: Denies: Dysuria, Frequency, Incontinence, Hematuria, Retention, Other Symptoms Hematologic: Denies: Bruising, Bleeding Excessively, Petecchia, Purpura, Enlarged Lymph Nodes, Other Hematologic Endocrine: Denies: Polydipsia, Polyphagia, Polyuria, Heat Intolerance, Cold Intolerance, Other Endocrine Sx Musculoskeletal: Reports: Other Symptoms Neurological: Denies: Weakness, Numbness, Incoordination, Change in speech, Confusion, Seizures, Other Symptoms Psych: Denies: Mood Normal, Anxiety, Depression, Memory Issues, Thoughts of Self Harm, Anger, Thoughts of Harming Other, Other Psych Objective Physical Examination General Exam: Positive: Alert, Cooperative, No Acute Distress Eye Exam: Positive: PERRLA ENT Exam: Positive: Atraumatic Neck Exam: Positive: Supple; Negative: JVD Chest Exam: Positive: Clear to auscultation, Normal air movement Heart Exam: Positive: Rate Normal, Regular Rhythm Abdomen Exam: Positive: Normal bowel sounds, Soft; Negative: Tenderness Extremity Exam: Positive: Normal pulses; Negative: Edema Skin Exam: Positive: Nl turgor and temperature, Lesion (as mentioned in HPI) Neuro Exam: Positive: Normal Speech, Strength at 5/5 X4 ext Psych Exam: Positive: Mental status NL, Mood NL A-FIB/CHADSVASC A-FIB History Current/History of A-Fib/PAF?: No Assessment /Plan Problems (1) Cellulitis and abscess of buttock Status: Acute Response to Treatment: Stable Problem Text: Most likely MRSA Continue vancomycin and adjust doses per pharmacy DC Zosyn Wound care as per surgery [place] ID consult if WBC count not improved Plan/VTE VTE Prophylaxis Ordered?: Yes VTE Exclusion Mechanical Proph: N/A:VTE Prophy Ordered VTE Exclusion Pharmacological: N/A:VTE Prophy Ordered Plan Anticipated Discharge: Home VS, I&O, 24H, Fishbone Vital Signs/I&O Vital Signs Date Time Temp Pulse Resp B/P (MAP) Pulse Ox O2 Delivery O2 Flow Rate FiO2 08/02/18 09:26 83 127/77 08/02/18 06:00 98.9 18 93 I&O- Last 24 Hours up to 6 AM 08/02/18 05:59 Intake Total 1385 ml Output Total 1200 ml Balance 185 ml Laboratory Data 24H LABS Laboratory Tests 2 08/01/18 18:53: Vancomycin Level Trough 11.6 08/02/18 05:32: Nucleated Red Blood Cells % (auto) 0.0, Anion Gap 7L, Glomerular Filtration Rate 30.1L, Blood Urea Nitrogen 42H, Creatinine 2.21H, Sodium Level 135L, Potassium Level 4.2#, Chloride Level 97L, Carbon Dioxide Level 31, Calcium Level 8.4L CBC/BMP Laboratory Tests 08/02/18 05:32 Red Blood Count 3.67 L, Mean Corpuscular Volume 93.7, Mean Corpuscular Hemoglobin 31.6, Mean Corpuscular Hemoglobin Concent 33.7, Red Cell Distribution Width 13.9, Calcium Level 8.4 L Microbiology Microbiology 07/31/18 Blood Culture - Preliminary, Resulted Staphylococcus Aureus 07/31/18 Gram Stain - Final, Complete 07/31/18 Wound Culture - Final, Complete Staph.aureus Methicillin Resis CHRISTOS FRANKEL MD August 02, 2018 10:13
[2018-08-02 14:00] VITALS: BP 115/65
--- NOTE | 2018-08-02 19:49 | PHACANCOPD ---
PHARMACY VANCOMYCIN DOSING Pt Demographics Demographics Patient Age:88 , Weight:64.400 , Gender: male Adjusted Body Weight Date: 07/31/18, Adjusted Body Weight: [63.5] Kg(ACTUAL WT) Vancomycin Vancomycin indication: BUTTOCK ABCESS,PNA Vancomycin Target Ranges: 15-20 mcg/ml Vancomycin Load Y/N: No Load Dose Date Time Vancomycin Load Dose: Date: Time: Vancomycin Dose Date: 07/31/18. Current Vancomycin Dose: [1 GM Q24H] Intermittent Dosing?: No Labs Micro Microbiology 07/31/18 Blood Culture - Preliminary, Resulted Staphylococcus Aureus 07/31/18 Gram Stain - Final, Complete 07/31/18 Wound Culture - Final, Complete Staph.aureus Methicillin Resis Creatinine Clearance Date:07/31/18. Creatinine Clearance: [26.3].CALCULATED Assessment and Plan Maintaining Current Dose?: Yes Reason for dose change: No Dose Change Pharmacist Note Pharmacist Note 08/02/18: Day #4 IV vancomycin therapy. A vancomycin trough level was drawn today considering a marked increase in the pts scr and BUN since start of admission. Today's vancomycin trough level resulted at 13.6mcg/ml. Scr has increased from 1.78 at start of therapy to 2.21 today. BUN has increased from 25 at start of therapy to 42 today. We will continue the patient on his current regimen of 1g IV Q24H for the treatment of a MRSA buttock abscess (ALEX=1). We will continue to monitor the patient's renal function and draw further levels accordingly. Date: 07/31/18. Pharmacist note:88 YOM transferred [facility] w/worsening pain/swelling in buttock area following insect bite.SCR=1.78,Calculated CRCL=26.3. ED administered 1 gram Vancomycin .Will continue with 1 gram iv q24h to begin 07/31@1999.Frisr trough is scheduled for 08/01 1900-will continue to follow [facility] August 02, 2018 19:49
[2018-08-02] MEDS: VANCOMYCIN HCL 1,000 MG, VIAL MATE ADAPTER 1 EACH in D5W 250 ML IV SCH (20:24)
[2018-08-02 22:00] VITALS: BP 153/78
[2018-08-03 02:00] VITALS: BP 149/70
[2018-08-03 06:00] VITALS: BP 155/72
[2018-08-03 06:02] LABS: HEMATOCRIT 33.2 % (42.0-52.0); HEMOGLOBIN 11.3 g/dl (13.5-17.5); MEAN CORPUSCULAR HEMOGLOBIN 32.5 pg (27.0-33.0); MEAN CORPUSCULAR VOLUME 95.4 fl (80.0-96.0); PLATELET COUNT, AUTOMATED 276 10^3/uL (150-450); RED BLOOD COUNT 3.48 10^6/uL (4.30-6.10); WHITE BLOOD COUNT 17.5 10^3/uL (4.0-10.0)
[2018-08-03 06:18] LABS: ALBUMIN 1.7 GM/DL (3.2-5.2); BILIRUBIN,TOTAL 0.7 MG/DL (0.2-1.0); CALCIUM LEVEL 7.9 MG/DL (8.8-10.2); CREATININE FOR GFR 2.25 MG/DL (0.70-1.30); GLOMERULAR FILTRATION RATE 29.5 (>35); POTASSIUM SERUM 3.5 MEQ/L (3.5-5.1); TOTAL PROTEIN 6.6 GM/DL (6.4-8.2)
[2018-08-03] MEDS: APIXABAN 2.5 MG TAB (ELIQUIS) PO SCH ×2 (08:57→22:14)
[2018-08-03] MEDS: FOLIC ACID 1 MG TAB PO SCH (08:57)
[2018-08-03] MEDS: PRAVASTATIN 20 MG TAB PO SCH (08:58)
[2018-08-03] MEDS: METOPROLOL TART 25 MG TABLET PO SCH ×2 (08:58→22:14)
[2018-08-03] MEDS: MAGNESIUM OXIDE 400 MG TAB (MAG-OX) PO SCH (08:58)
[2018-08-03] MEDS: ASPIRIN 81 MG ENTERIC TAB PO SCH (08:58)
[2018-08-03] MEDS: levETIRAcetam 250MG TABLET (KEPPRA) PO SCH ×2 (08:58→22:14)
[2018-08-03] MEDS: AMIODARONE 100MG TABLET (PACERONE) PO SCH (08:59)
[2018-08-03 10:00] VITALS: BP 143/79
--- NOTE | 2018-08-03 11:06 | IPNPDOC ---
Subjective Date Seen The patient was seen on 08/03/18. Subjective Chief Complaint/HPI Patient comfortable offers no new complaints at the present time General: Denies: ROS Unobtainable, Chills, Night Sweats, Fatigue, Malaise, Normal Appetite, Other Symptoms Constitutional: Denies: Chills, Fever, Malaise, Night Sweats, Weakness, Fatigue, Weight Loss, Lethargy, Other Eyes: Denies: Pain, Vision change, Conjunctivae inflammation, Eyelid inflammation, Redness, Other ENT: Denies: Head Aches, Ear Pain, Dysphagia, Sinus Congestion, Post Nasal Dr ip, Sore Throat, Epistaxis, Other Symptoms Skin: Denies: Rash, Lesions, Jaundice, Bruising, Itching, Dry, Breakdown, Nail Changes, Other Pulmonary: Denies: Dyspnea, Cough, Pleuritic Chest Pain, Other Symptoms Cardiovascular: Denies: Chest Pain, Palpitations, Orthopnea, Paroxysmal Noc. Dyspnea, Edema, Lt Headedness, Other Symptoms Gastrointestinal: Denies: Nausea, Vomiting, Abdominal Pain, Diarrhea, Constipation, Melena, Hematochezia, Other Symptoms Genitourinary: Denies: Dysuria, Frequency, Incontinence, Hematuria, Retention, Other Symptoms Hematologic: Denies: Bruising, Bleeding Excessively, Petecchia, Purpura, Enlarged Lymph Nodes, Other Hematologic Endocrine: Denies: Polydipsia, Polyphagia, Polyuria, Heat Intolerance, Cold Intolerance, Other Endocrine Sx Neurological: Denies: Weakness, Numbness, Incoordination, Change in speech, Confusion, Seizures, Other Symptoms Objective Physical Examination General Exam: Positive: Alert, Cooperative, No Acute Distress Eye Exam: Positive: PERRLA ENT Exam: Positive: Atraumatic Neck Exam: Positive: Supple; Negative: JVD Chest Exam: Positive: Clear to auscultation, Normal air movement Heart Exam: Positive: Rate Normal, Regular Rhythm Abdomen Exam: Positive: Normal bowel sounds, Soft; Negative: Tenderness Extremity Exam: Positive: Normal pulses; Negative: Edema Skin Exam: Positive: Nl turgor and temperature, Lesion (as mentioned in HPI) Neuro Exam: Positive: Normal Speech, Strength at 5/5 X4 ext Psych Exam: Positive: Mental status NL, Mood NL A-FIB/CHADSVASC A-FIB History Current/History of A-Fib/PAF?: No Assessment /Plan Problems (1) Cellulitis and abscess of buttock Status: Acute Response to Treatment: Stable Problem Text: Most likely MRSA Continue vancomycin and adjust doses per pharmacy PARAG Fernández Wound care as per surgery Will call infectious disease consult and patient's MRSA is positive in blood as well as in his room Repeat labs in morning Plan/VTE VTE Prophylaxis Ordered?: Yes VTE Exclusion Mechanical Proph: N/A:VTE Prophy Ordered VTE Exclusion Pharmacological: N/A:VTE Prophy Ordered Plan Anticipated Discharge: Home VS, I&O, 24H, [facility] Vital Signs/I&O Vital Signs Date Time Temp Pulse Resp B/P (MAP) Pulse Ox O2 Delivery O2 Flow Rate FiO2 08/03/18 10:00 98.1 88 19 143/79 (100) 95 I&O- Last 24 Hours up to 6 AM 08/03/18 06:00 Intake Total 870 ml Output Total 2425 ml Balance -1555 ml Laboratory Data 24H LABS Laboratory Tests 2 08/02/18 18:53: Vancomycin Level Trough 13.6 08/03/18 05:34: Nucleated Red Blood Cells % (auto) 0.0, Anion Gap 6L, Glomerular Filtration Rate 29.5L, Blood Urea Nitrogen 44H, Creatinine 2.25H, Sodium Level 137, Potassium Level 3.5, Chloride Level 100, Carbon Dioxide Level 31, Calcium Level 7.9L, Aspartate Amino Transf (AST/SGOT) 47H, Alanine Aminotransferase (ALT/SGPT) 36, Alkaline Phosphatase 228H, Total Bilirubin 0.7, Total Protein 6.6, Albumin 1.7L, Albumin/Globulin Ratio 0.35L CBC/BMP Laboratory Tests 08/03/18 05:34 Red Blood Count 3.48 L, Mean Corpuscular Volume 95.4, Mean Corpuscular Hemoglobin 32.5, Mean Corpuscular Hemoglobin Concent 34.0, Red Cell Distribution Width 13.8, Calcium Level 7.9 L, Aspartate Amino Transf (AST/SGOT) 47 H, Alanine Aminotransferase (ALT/SGPT) 36, Alkaline Phosphatase 228 H, Total Bilirubin 0.7, Total Protein 6.6, Albumin 1.7 L Microbiology Microbiology 07/31/18 Blood Culture - Final, Complete Staph.aureus Methicillin Resis 07/31/18 Gram Stain - Final, Complete 07/31/18 Wound Culture - Final, Complete Staph.aureus Methicillin Resis CHRISTOS FRANKEL MD August 03, 2018 11:06
--- NOTE | 2018-08-03 12:11 | PHACANCOPD ---
PHARMACY VANCOMYCIN DOSING Pt Demographics Demographics Patient Age:88 , Weight:63.000 , Gender: male Adjusted Body Weight Date: 07/31/18, Adjusted Body Weight: [63.5] Kg(ACTUAL WT) Vancomycin Vancomycin indication: BUTTOCK ABCESS,PNA Vancomycin Target Ranges: 15-20 mcg/ml Vancomycin Load Y/N: No Load Dose Date Time Vancomycin Load Dose: Date: Time: Vancomycin Dose Date: 07/31/18. Current Vancomycin Dose: [1 GM Q24H] Intermittent Dosing?: No Labs Micro Microbiology 07/31/18 Blood Culture - Final, Complete Staph.aureus Methicillin Resis 07/31/18 Gram Stain - Final, Complete 07/31/18 Wound Culture - Final, Complete Staph.aureus Methicillin Resis Creatinine Clearance Date:07/31/18. Creatinine Clearance: [26.3].CALCULATED Assessment and Plan Maintaining Current Dose?: Yes Reason for dose change: No Dose Change Pharmacist Note Pharmacist Note 08/03/18: Day #5 IV vancomycin therapy for the treatment of MRSA bacteremia and MRSA positive buttock abscess (ALEX=1). Scr is 2.25 today from 2.21 yesterday. BUN is 44 today from 42 yesterday. A follow-up vancomycin trough has been scheduled to be drawn tomorrow, 08/04/18, @1900 to ensure adequate monitoring given pts MARK. We will continue the patient on his current regimen of 1g IV Q24H for now and follow-up with trough level tomorrow. 08/02/18: Day #4 IV vancomycin therapy. A vancomycin trough level was drawn today considering a marked increase in the pts scr and BUN since start of admission. Today's vancomycin trough level resulted at 13.6mcg/ml. Scr has increased from 1.78 at start of therapy to 2.21 today. BUN has increased from 25 at start of therapy to 42 today. We will continue the patient on his current regimen of 1g IV Q24H for the treatment of a MRSA buttock abscess (ALEX=1). We will continue to monitor the patient's renal function and draw further levels accordingly. Date: 07/31/18. Pharmacist note:88 YOM transferred [facility] w/worsening pain/swelling in buttock area following insect bite.SCR=1.78,Calculated CRCL=26.3. ED administered 1 gram Vancomycin .Will continue with 1 gram iv q24h to begin 07/31@1999.Fri trough is scheduled for 08/01 1900-will continue to follow [facility] August 03, 2018 12:11
[2018-08-03 14:00] VITALS: BP 127/63
[2018-08-03 18:00] VITALS: BP 137/74
[2018-08-03] MEDS: VANCOMYCIN HCL 1,000 MG, VIAL MATE ADAPTER 1 EACH in D5W 250 ML IV SCH (20:01)
[2018-08-03 22:00] VITALS: BP 127/66
[2018-08-04 02:00] VITALS: BP 124/59
[2018-08-04 06:00] VITALS: BP 123/60
[2018-08-04 06:35] LABS: HEMATOCRIT 32.6 % (42.0-52.0); HEMOGLOBIN 10.9 g/dl (13.5-17.5); MEAN CORPUSCULAR HEMOGLOBIN 31.1 pg (27.0-33.0); MEAN CORPUSCULAR HGB CONC 33.4 g/dl (32.0-36.5); MEAN CORPUSCULAR VOLUME 92.9 fl (80.0-96.0); PLATELET COUNT, AUTOMATED 312 10^3/uL (150-450); RED BLOOD COUNT 3.51 10^6/uL (4.30-6.10); WHITE BLOOD COUNT 16.3 10^3/uL (4.0-10.0)
[2018-08-04 06:55] LABS: CALCIUM LEVEL 8.4 MG/DL (8.8-10.2); CREATININE FOR GFR 2.09 MG/DL (0.70-1.30); GLOMERULAR FILTRATION RATE 32.1 (>35); POTASSIUM SERUM 3.4 MEQ/L (3.5-5.1)
[2018-08-04] MEDS ORDERED: POTASSIUM CHLORIDE 10 MEQ SR TABLET PO ONE (08:00)
[2018-08-04] MEDS: ASPIRIN 81 MG ENTERIC TAB PO SCH (08:19)
[2018-08-04] MEDS: FOLIC ACID 1 MG TAB PO SCH (08:19)
[2018-08-04] MEDS: MAGNESIUM OXIDE 400 MG TAB (MAG-OX) PO SCH (08:19)
[2018-08-04] MEDS: AMIODARONE 100MG TABLET (PACERONE) PO SCH (08:20)
[2018-08-04] MEDS: METOPROLOL TART 25 MG TABLET PO SCH ×2 (08:20→21:50)
[2018-08-04] MEDS: APIXABAN 2.5 MG TAB (ELIQUIS) PO SCH ×2 (08:20→21:50)
[2018-08-04] MEDS: PRAVASTATIN 20 MG TAB PO SCH (08:20)
[2018-08-04] MEDS: levETIRAcetam 250MG TABLET (KEPPRA) PO SCH ×2 (08:20→21:50)
[2018-08-04 10:00] VITALS: BP 125/64
--- NOTE | 2018-08-04 13:49 | IPNPDOC ---
Subjective Date Seen The patient was seen on 08/04/18. Subjective Chief Complaint/HPI No new complaints General: Denies: ROS Unobtainable, Chills, Night Sweats, Fatigue, Malaise, Normal Appetite, Other Symptoms Constitutional: Denies: Chills, Fever, Malaise, Night Sweats, Weakness, Fati jackie, Weight Loss, Lethargy, Other Eyes: Denies: Pain, Vision change, Conjunctivae inflammation, Eyelid inflammation, Redness, Other ENT: Denies: Head Aches, Ear Pain, Dysphagia, Sinus Congestion, Post Nasal Drip, Sore Throat, Epistaxis, Other Symptoms Skin: Denies: Rash, Lesions, Jaundice, Bruising, Itching, Dry, Breakdown, Nail Changes, Other Pulmonary: Denies: Dyspnea, Cough, Pleuritic Chest Pain, Other Symptoms Cardiovascular: Denies: Chest Pain, Palpitations, Orthopnea, Paroxysmal Noc. Dyspnea, Edema, Lt Headedness, Other Symptoms Gastrointestinal: Denies: Nausea, Vomiting, Abdominal Pain, Diarrhea, Constipation, Melena, Hematochezia, Other Symptoms Genitourinary: Denies: Dysuria, Frequency, Incontinence, Hematuria, Retention, Other Symptoms Hematologic: Denies: Bruising, Bleeding Excessively, Petecchia, Purpura, Enlarged Lymph Nodes, Other Hematologic Endocrine: Denies: Polydipsia, Polyphagia, Polyuria, Heat Intolerance, Cold Intolerance, Other Endocrine Sx Musculoskeletal: Denies: Neck Pain, Back Pain, Shoulder Pain, Arm Pain, Hand Pain, Leg Pain, Foot Pain, Joint Pain, Muscle Pain, Spasms, Other Symptoms Neurological: Denies: Weakness, Numbness, Incoordination, Change in speech, Confusion, Seizures, Other Symptoms Psych: Denies: Mood Normal, Anxiety, Depression, Memory Issues, Thoughts of Self Harm, Anger, Thoughts of Harming Other, Other Psych Objective Physical Examination General Exam: Positive: Alert, Cooperative, No Acute Distress Eye Exam: Positive: PERRLA ENT Exam: Positive: Atraumatic Neck Exam: Positive: Supple; Negative: JVD Chest Exam: Positive: Clear to auscultation, Normal air movement Heart Exam: Positive: Rate Normal, Regular Rhythm Abdomen Exam: Positive: Normal bowel sounds, Soft; Negative: Tenderness Extremity Exam: Positive: Normal pulses; Negative: Edema Skin Exam: Positive: Nl turgor and temperature, Lesion (as mentioned in HPI) Neuro Exam: Positive: Normal Speech, Strength at 5/5 X4 ext Psych Exam: Positive: Mental status NL, Mood NL A-FIB/CHADSVASC A-FIB History Current/History of A-Fib/PAF?: No Assessment /Plan Problems (1) Cellulitis and abscess of buttock Status: Acute Response to Treatment: Stable Problem Text: Most likely MRSA Continue vancomycin and adjust doses per pharmacy DC Zosyn Wound care as per surgery ID consult requested with Dr. Parada, further recommendations Continue present care (2) Hypokalemia Status: Acute Problem Text: . KCl 40 mEq by mouth 1 ordered Repeat labs in a.m. Plan/VTE VTE Prophylaxis Ordered?: Yes VTE Exclusion Mechanical Proph: N/A:VTE Prophy Ordered VTE Exclusion Pharmacological: N/A:VTE Prophy Ordered Plan Anticipated Discharge: Home VS, I&O, 24H, Fishbone Vital Signs/I&O Vital Signs Date Time Temp Pulse Resp B/P (MAP) Pulse Ox O2 Delivery O2 Flow Rate FiO2 08/04/18 10:00 98.1 74 20 125/64 (84) 92 I&O- Last 24 Hours up to 6 AM 08/04/18 06:00 Intake Total 1196 ml Output Total 1130 ml Balance 66 ml Laboratory Data 24H LABS Laboratory Tests 2 08/04/18 05:57: Nucleated Red Blood Cells % (auto) 0.0, Anion Gap 7L, Glomerular Filtration Rate 32.1L, Blood Urea Nitrogen 46H, Creatinine 2.09H, Sodium Level 136, Potassium Level 3.4L, Chloride Level 100, Carbon Dioxide Level 29, Calcium Level 8.4L CBC/BMP Laboratory Tests 08/04/18 05:57 Red Blood Count 3.51 L, Mean Corpuscular Volume 92.9, Mean Corpuscular Hemoglobin 31.1, Mean Corpuscular Hemoglobin Concent 33.4, Red Cell Distribution Width 14.0, Calcium Level 8.4 L Microbiology Microbiology 08/03/18 Blood Culture - Preliminary, Resulted No growth after 24 hours . All specim... 07/31/18 Blood Culture - Final, Complete Staph.aureus Methicillin Resis 07/31/18 Gram Stain - Final, Complete 07/31/18 Wound Culture - Final, Complete Staph.aureus Methicillin Resis CHRISTOS FRANKEL MD August 04, 2018 13:49
[2018-08-04 14:00] VITALS: BP 135/78
[2018-08-04 15:23] LABS: C REACTIVE PROTEIN QUANTITATIV 16.9 MG/DL (0.00-0.30)
[2018-08-04 18:00] VITALS: BP 128/72
--- NOTE | 2018-08-04 21:05 | CR.PDOC ---
General Date of Consultation: August 04, 2018 Referring Provider: CHRISTOS FRANKEL MD Attending Physician: Hermelinda Khalil MD Consultation 0REASON FOR CONSULTATION/CHIEF COMPLAINT: Staph aureus methicillin Resistant would culture, Staph aureus methicillin Resistant HISTORY OF PRESENT ILLNESS: Patient is a 88 year male who presented as a transfer from Health system on 07/31/18 after he went to the ED for pain and swelling on his left buttock. He was given one dose of IV zosyn prior to his transfer. According to patient he believed that he may have sat down on a tooth pick and did not notice it until he started to feel intense progressive pain around his buttocks. On presentation to this hospital, his initial evaluation was positive for staph aureus, methicillin-resistant culture on his buttocks, his blood culture was also positive for staph aureus methicillin-resistant. Repeat blood cultures on 08/03/2018 has been negative so far. He had an elevated white count on presentation, with downtrending noted during his hospital stay. He has been afebrile and hemodynamically stable during his hospital stay. Patient underwent incision and drainage of his buttocks wound 07/31/18. He sandeep erated the procedure without difficulty and only complains of minimal pain today. On interview today, he admits to pleuritic chest pain with breathing. He also admits to left buttocks pain. denies nausea, denied vomiting, denies changes in vision. Denies shortness of breath, or difficulty breathing. ALLERGIES: Please see below. HOME MEDICATIONS: Please see below. 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 fib, COPD, hyperlipidemia PAST SURGICAL HISTORY: Appendectomy, cardiac pacemaker installation FAMILY HISTORY: Non Pertinent SOCIAL HISTORY: Denies alcohol, denies IV drug use, denies smoking REVIEW OF SYSTEMS: CONSTITUTIONAL: No fevers, denies chills, denies weight loss, denies lethargy HEENT: No rhinorrhea, no itchy eyes, no congestion, CARDIOVASCULAR: No murmurs no palpitations and arrhythmias, admits to chest pain RESPIRATORY: Not cough, No SOB, no issues to report GASTROINTESTINAL: No nausea, no vomiting, no difficulty swallowing, no pain with eating, no diarrhea HEMATOLOGICAL: No bleeding GENITOURINARY:No Issues HEMATOLOGIC/LYMPHATIC: No swelling MUSCULOSKELETAL: Admits to buttocks pain PHYSICAL EXAM VITALS: See Below GENERAL APPEARANCE: Alert no acute distress. pleasant elderly gentlemen SKIN: Warm, well perfused. THORAX: Symmetrical. LUNGS: Clear to auscultation bilaterally. CHEST: Cardiac pacemaker locater on the right side of patients chest, expiratory crackles on bilateral lower lung bases. HEART: Normal S1, S2. No murmurs, no rubs, no gallops ABDOMEN: Soft. No masses. Bowel sounds are present. TRUNK/SPINE:Straight. EXTREMITIES: Moves all extremities equally. No gross deformities. PULSES: 2+ upper and lower extremity . MUSCULOSKELETAL: Two small 1 x 1 in size that is healing, would is status post incision and drainage on patients left buttocks. No purulent drainage, LABORATORY DATA: Please see below. ASSESSMENT/PLAN: Staph aureus, methicillin-resistant bacteremia Patient is an 88-year-old man admitted with staph aureus, methicillin-resistant bacteremia, along with staph aureus methicillin-resistant buttocks wound. With infectious disease consultation. Patient has been afebrile since presentation. His white count continues to down trend. He is currently on vancomycin. This needs to be continued for between 2 and 6 weeks, based on patient's echocardiogram results. An order for echo has been placed. Patient also complained of pleuritic chest pain, he denied cough or sputum production bruna rning for pneumonia or septic emboli . Chest x-ray has been ordered. He does have a history of CHF, he is currently euvolemia without signs of trouble breathing. Will check patient's BNP. Continue to monitor patient clinically. Staph aureus, methicillin-resistant buttocks wound Has been incised and drainage. Wound has no purulent drainage, mild erythema. Continue vancomycin therapy. Change wound dressing daily Vital Signs/I&O Vital Signs Date Time Temp Pulse Resp B/P (MAP) Pulse Ox O2 Delivery O2 Flow Rate FiO2 08/04/18 18:00 98.3 75 18 128/72 (90) 97 I&O- Last 24 Hours up to 6 AM 08/04/18 06:00 Intake Total 1196 ml Output Total 1130 ml Balance 66 ml Laboratory Data Labs 24H Laboratory Tests 2 08/04/18 05:57: Nucleated Red Blood Cells % (auto) 0.0, Anion Gap 7L, Glomerular Filtration Rate 32.1L, Blood Urea Nitrogen 46H, Creatinine 2.09H, Sodium Level 136, Potassium Level 3.4L, Chloride Level 100, Carbon Dioxide Level 29, Calcium Level 8.4L, C- Reactive Protein, Quantitative 16.90H 08/04/18 18:45: Vancomycin Level Trough 15.5 CBC/BMP Laboratory Tests 08/04/18 05:57 Red Blood Count 3.51 L, Mean Corpuscular Volume 92.9, Mean Corpuscular Hemoglobin 31.1, Mean Corpuscular Hemoglobin Concent 33.4, Red Cell Distribution Width 14.0, Calcium Level 8.4 L Microbiology Microbiology 08/03/18 Blood Culture - Preliminary, Resulted No growth after 24 hours . All specim... 07/31/18 Blood Culture - Final, Complete Staph.aureus Methicillin Resis 07/31/18 Gram Stain - Final, Complete 07/31/18 Wound Culture - Final, Complete Staph.aureus Methicillin Resis Allergies Coded Allergies: No Known Allergies (Unverified , 01/20/18) Home Medications Scheduled Amiodarone HCl (Pacerone) 100 Mg Tablet, 100 MG PO DAILY, (Reported) Apixaban (Eliquis) 2.5 Mg Tab, 2.5 MG PO BID, (Reported) Aspirin (Aspir 81) 81 Mg Tab, 81 MG PO DAILY, (Reported) Folic Acid (Folic Acid) 1 Mg Tab, 1 MG PO DAILY, (Reported) Furosemide (Furosemide) 40 Mg Tab, 40 MG PO DAILY, (Reported) Levetiracetam (Levetiracetam) 250 Mg Tablet, 250 MG PO BID, (Reported) Magnesium Oxide (Magnesium Oxide) 400 Mg Tab, 400 MG PO DAILY, (Reported) Metoprolol Tartrate (Metoprolol Tartrate) 25 Mg Tab, 25 MG PO BID, (Reported) Potassium Chloride (Potassium Chloride) 10 Meq Tab, 10 MEQ PO DAILY, (Reported) Pravastatin Sodium (Pravastatin Sodium) 20 Mg Tab, 20 MG PO DAILY, (Reported) Scheduled PRN Acetaminophen/Caffeine (Excedrin Tension Headache Cplt) 1 Each Tablet, 1 EACH PO Q6H PRN for HEADACHE OR PAIN, (Reported) Miscellaneous Medications [Patient Comments] , (Reported) PATIENT STATES HE'S REASONABLY SURE THE LAST TIME HE TOOK HIS MEDICATIONS WAS 2 DAYS AGO. (07/28/2018) GME ATTESTATION GME ATTESTATION My faculty preceptor for this patient encounter was physically present during the encounter and was fully available. All aspects of the patient interview, examination, medical decision making process, and medical care plan development were reviewed and approved by the faculty preceptor. The faculty preceptor is aware and concurs with the plan as stated in the body of this note and will attest to such by his/her cosignature. CATHERINE DELEON DO August 04, 2018 21:05 Hermelinda Khalil MD August 05, 2018 15:23
[2018-08-04] MEDS: VANCOMYCIN HCL 1,000 MG, VIAL MATE ADAPTER 1 EACH in D5W 250 ML IV SCH (21:47)
[2018-08-04 22:00] VITALS: BP 143/72
--- NOTE | 2018-08-04 22:01 | REPVR ---
EXAM: XR Chest, 2 Views EXAM DATE/TIME: 08/04/2018 9:29 PM CLINICAL HISTORY: 88 years old, male; Signs and symptoms; Other: Pna; Additional info: Possible pna TECHNIQUE: Imaging protocol: XR of the chest, 2 views. COMPARISON: CR Chest, 2 view PA, Lat 10/02/2016 8:[address] Chest without contrast 07/31/2018 1:45:47 AM FINDINGS: Tubes, catheters and devices: IVC filter in place. Pacemaker implanted in the left chest wall, obscuring a portion of the study. Lungs: Persistent nodular density in the right lower lung. Infiltrate in the left mid to lower lung has increased. Pleural space: Left worse than right costophrenic angle blunting. No pneumothorax. Heart/Mediastinum: Cardiomegaly. Bones/joints: Degenerative changes in the spine. No acute fracture. Normal alignment. IMPRESSION: 1. Increased infiltrate in the left mid to lower lung. 2. Persistent nodular density in the right lower lung. Followup recommended. 3. Small bilateral pleural effusions. 4. Nonacute/incidental findings above. Electronically signed by: Adis Garcia On 08/04/2018 22:01:34 PM
[2018-08-05 02:00] VITALS: BP 134/61
[2018-08-05 06:00] VITALS: BP 138/78
[2018-08-05 06:22] LABS: HEMATOCRIT 31.1 % (42.0-52.0); HEMOGLOBIN 10.7 g/dl (13.5-17.5); MEAN CORPUSCULAR HEMOGLOBIN 32.6 pg (27.0-33.0); MEAN CORPUSCULAR HGB CONC 34.4 g/dl (32.0-36.5); MEAN CORPUSCULAR VOLUME 94.8 fl (80.0-96.0); PLATELET COUNT, AUTOMATED 337 10^3/uL (150-450); RED BLOOD COUNT 3.28 10^6/uL (4.30-6.10); WHITE BLOOD COUNT 16.3 10^3/uL (4.0-10.0)
[2018-08-05 06:54] LABS: ALBUMIN 1.7 GM/DL (3.2-5.2); BILIRUBIN,TOTAL 0.6 MG/DL (0.2-1.0); CALCIUM LEVEL 8.2 MG/DL (8.8-10.2); CREATININE FOR GFR 1.89 MG/DL (0.70-1.30); GLOMERULAR FILTRATION RATE 36.1 (>35); POTASSIUM SERUM 3.8 MEQ/L (3.5-5.1); TOTAL PROTEIN 6.1 GM/DL (6.4-8.2)
[2018-08-05] MEDS: APIXABAN 2.5 MG TAB (ELIQUIS) PO SCH ×2 (08:44→20:56)
[2018-08-05] MEDS: AMIODARONE 100MG TABLET (PACERONE) PO SCH (08:44)
[2018-08-05] MEDS: ASPIRIN 81 MG ENTERIC TAB PO SCH (08:44)
[2018-08-05] MEDS: MAGNESIUM OXIDE 400 MG TAB (MAG-OX) PO SCH (08:44)
[2018-08-05] MEDS: levETIRAcetam 250MG TABLET (KEPPRA) PO SCH ×2 (08:44→20:55)
[2018-08-05] MEDS: FOLIC ACID 1 MG TAB PO SCH (08:44)
[2018-08-05] MEDS: PRAVASTATIN 20 MG TAB PO SCH (08:44)
[2018-08-05] MEDS: METOPROLOL TART 25 MG TABLET PO SCH ×2 (08:45→20:56)
[2018-08-05 10:00] VITALS: BP 127/67
--- NOTE | 2018-08-05 11:19 | IPNPDOC ---
Subjective Date Seen The patient was seen on 08/05/18. Subjective Chief Complaint/HPI Patient comfortable offers no new complaints at the present time General: Denies: ROS Unobtainable, Chills, Night Sweats, Fatigue, Malaise, Normal Appetite, Other Symptoms Constitutional: Denies: Chills, Fever, Malaise, Night Sweats, Weakness, Fatigue, Weight Loss, Lethargy, Other Eyes: Denies: Pain, Vision change, Conjunctivae inflammation, Eyelid inflammation, Redness, Other ENT: Denies: Head Aches, Ear Pain, Dysphagia, Sinus Congestion, Post Nasal Dr ip, Sore Throat, Epistaxis, Other Symptoms Skin: Denies: Rash, Lesions, Jaundice, Bruising, Itching, Dry, Breakdown, Nail Changes, Other Pulmonary: Denies: Dyspnea, Cough, Pleuritic Chest Pain, Other Symptoms Cardiovascular: Denies: Chest Pain, Palpitations, Orthopnea, Paroxysmal Noc. Dyspnea, Edema, Lt Headedness, Other Symptoms Gastrointestinal: Denies: Nausea, Vomiting, Abdominal Pain, Diarrhea, Constipation, Melena, Hematochezia, Other Symptoms Genitourinary: Denies: Dysuria, Frequency, Incontinence, Hematuria, Retention, Other Symptoms Hematologic: Denies: Bruising, Bleeding Excessively, Petecchia, Purpura, Enlarged Lymph Nodes, Other Hematologic Endocrine: Denies: Polydipsia, Polyphagia, Polyuria, Heat Intolerance, Cold Intolerance, Other Endocrine Sx Musculoskeletal: Denies: Neck Pain, Back Pain, Shoulder Pain, Arm Pain, Hand Pain, Leg Pain, Foot Pain, Joint Pain, Muscle Pain, Spasms, Other Symptoms Neurological: Denies: Weakness, Numbness, Incoordination, Change in speech, Confusion, Seizures, Other Symptoms Psych: Denies: Mood Normal, Anxiety, Depression, Memory Issues, Thoughts of Self Harm, Anger, Thoughts of Harming Other, Other Psych Objective Physical Examination General Exam: Positive: Alert, Cooperative, No Acute Distress Eye Exam: Positive: PERRLA ENT Exam: Positive: Atraumatic Neck Exam: Positive: Supple; Negative: JVD Chest Exam: Positive: Clear to auscultation, Normal air movement Heart Exam: Positive: Rate Normal, Regular Rhythm Abdomen Exam: Positive: Normal bowel sounds, Soft; Negative: Tenderness Extremity Exam: Positive: Normal pulses; Negative: Edema Skin Exam: Positive: Nl turgor and temperature, Lesion (as mentioned in HPI) Neuro Exam: Positive: Normal Speech, Strength at 5/5 X4 ext Psych Exam: Positive: Mental status NL, Mood NL A-FIB/CHADSVASC A-FIB History Current/History of A-Fib/PAF?: No Assessment /Plan Problems (1) Cellulitis and abscess of buttock Status: Acute Response to Treatment: Stable Problem Text: , MRSA bacteremia and positive MRSA and wound culture Patient on vancomycin, Vanco dose adjusted by pharmacy Infectious disease consult appreciated Awaiting echocardiogram Depending on the results of echo duration of vancomycin will be decided by ID Patient already has been by subacute rehabilitation facility, awaiting echocardiogram (2) Hypokalemia Status: Acute Problem Text: Resolved Plan/VTE VTE Prophylaxis Ordered?: Yes VTE Exclusion Mechanical Proph: N/A:VTE Prophy Ordered VTE Exclusion Pharmacological: N/A:VTE Prophy Ordered Plan Anticipated Discharge: Home VS, I&O, 24H, Fishbone Vital Signs/I&O Vital Signs Date Time Temp Pulse Resp B/P (MAP) Pulse Ox O2 Delivery O2 Flow Rate FiO2 08/05/18 08:45 78 131/72 08/05/18 06:00 98.8 18 91 I&O- Last 24 Hours up to 6 AM 08/05/18 06:00 Intake Total 1480 ml Output Total 1600 ml Balance -120 ml Laboratory Data 24H LABS Laboratory Tests 2 08/04/18 18:45: Vancomycin Level Trough 15.5 08/05/18 05:54: Nucleated Red Blood Cells % (auto) 0.0, Anion Gap 7L, Glomerular Filtration Rate 36.1, Blood Urea Nitrogen 41H, Creatinine 1.89H, Sodium Level 138, Potassium Level 3.8, Chloride Level 104, Carbon Dioxide Level 27, Calcium Level 8.2L, Aspartate Amino Transf (AST/SGOT) 50H, Alanine Aminotransferase (ALT/SGPT) 54, Alkaline Phosphatase 289H, Total Bilirubin 0.6, Total Protein 6.1L, Albumin 1.7L, OV-Tgm-N-Type Natriuretic Peptide 2533H, Albumin/Globulin Ratio 0.39L CBC/BMP Laboratory Tests 08/05/18 05:54 Red Blood Count 3.28 L, Mean Corpuscular Volume 94.8, Mean Corpuscular Hemoglobin 32.6, Mean Corpuscular Hemoglobin Concent 34.4, Red Cell Distribution Width 14.1, Calcium Level 8.2 L, Aspartate Amino Transf (AST/SGOT) 50 H, Alanine Aminotransferase (ALT/SGPT) 54, Alkaline Phosphatase 289 H, Total Bilirubin 0.6, Total Protein 6.1 L, Albumin 1.7 L Microbiology Microbiology 08/03/18 Blood Culture - Preliminary, Resulted No growth after 24 hours . All specim... 07/31/18 Blood Culture - Final, Complete Staph.aureus Methicillin Resis 07/31/18 Gram Stain - Final, Complete 07/31/18 Wound Culture - Final, Complete Staph.aureus Methicillin Resis CHRISTOS FRANKEL MD August 05, 2018 11:19
[2018-08-05 14:00] VITALS: BP 123/62
[2018-08-05 18:00] VITALS: BP 146/77
--- NOTE | 2018-08-05 18:48 | IPNPDOC ---
Text Note Date of Service The patient was seen on 08/05/18. NOTE Subjective: Patient was examined at bedside. He complained of left-sided chest pain. Otherwise, patient is comfortable. He was afebrile overnight. He had no acute concerns. PHYSICAL EXAM VITALS: See Below GENERAL APPEARANCE: Pleasant elderly gentleman, resting in bed. No acute distress SKIN: Warm, well perfused. LUNGS: crackles in the expiratory phase CHEST: Cardiac pacemaker locater on the right side of patients chest, expiratory crackles on bilateral lower lung bases. HEART: Normal S1, S2. No murmurs, no rubs, no gallops ABDOMEN: Soft. No masses. Bowel sounds are present. EXTREMITIES: Moves all extremities equally. No gross deformities. PULSES: 2+ upper and lower extremity . MUSCULOSKELETAL: Two healing wound on patient's left buttocks, status post incision and drainage. Foul-smelling yellow colored purulent drainage, moderate erythema, tender to touch. LABORATORY DATA: Please see below. IMPRESSION: Complicated methicillin resistance staph aureus bacteremia, secondary to methicillin resistant staph aureus buttocks wound, complicated by septic septic embolism, as well as cardiac pacemaker. Patient will require echocardiogram to rule out endocarditis. This has scheduled on Wednesday, by Dr. Schwartz. Patient's echocardiogram results will dictate the duration of antibiotic therapy. Consider placement of PICC line for extended antibiotic use. Continue vancomycin use. Staph aureus, methicillin-resistant buttocks wound Has been incised and drainage. Dressing, changing daily, with Santyl. VS,Fishbone, I+O VS, Fishbone, I+O Laboratory Tests 08/05/18 05:54 Red Blood Count 3.28 L, Mean Corpuscular Volume 94.8, Mean Corpuscular Hemoglobin 32.6, Mean Corpuscular Hemoglobin Concent 34.4, Red Cell Distribution Width 14.1, Calcium Level 8.2 L, Aspartate Amino Transf (AST/SGOT) 50 H, Alanine Aminotransferase (ALT/SGPT) 54, Alkaline Phosphatase 289 H, Total Bilirubin 0.6, Total Protein 6.1 L, Albumin 1.7 L Vital Signs Date Time Temp Pulse Resp B/P (MAP) Pulse Ox O2 Delivery O2 Flow Rate FiO2 08/05/18 14:00 98.2 69 20 123/62 (82) 98 I&O- Last 24 Hours up to 6 AM 08/05/18 06:00 Intake Total 1480 ml Output Total 1600 ml Balance -120 ml GME ATTESTATION GME ATTESTATION My faculty preceptor for this patient encounter was physically present during the encounter and was fully available. All aspects of the patient interview, examination, medical decision making process, and medical care plan development were reviewed and approved by the faculty preceptor. The faculty preceptor is aware and concurs with the plan as stated in the body of this note and will attest to such by his/her cosignature. CATHERINE DELEON DO August 05, 2018 15:26
[2018-08-05] MEDS: VANCOMYCIN HCL 1,000 MG, VIAL MATE ADAPTER 1 EACH in D5W 250 ML IV SCH (19:48)
[2018-08-05 22:00] VITALS: BP 148/74
[2018-08-06 02:00] VITALS: BP 142/73
[2018-08-06 06:00] VITALS: BP 156/82
[2018-08-06 06:31] LABS: HEMATOCRIT 33.6 % (42.0-52.0); HEMOGLOBIN 11.3 g/dl (13.5-17.5); MEAN CORPUSCULAR HEMOGLOBIN 32.5 pg (27.0-33.0); MEAN CORPUSCULAR HGB CONC 33.6 g/dl (32.0-36.5); MEAN CORPUSCULAR VOLUME 96.6 fl (80.0-96.0); PLATELET COUNT, AUTOMATED 425 10^3/uL (150-450); RED BLOOD COUNT 3.48 10^6/uL (4.30-6.10); WHITE BLOOD COUNT 18.2 10^3/uL (4.0-10.0)
[2018-08-06 06:56] LABS: C REACTIVE PROTEIN QUANTITATIV 16.5 MG/DL (0.00-0.30); CALCIUM LEVEL 8.5 MG/DL (8.8-10.2); CREATININE FOR GFR 1.97 MG/DL (0.70-1.30); GLOMERULAR FILTRATION RATE 34.4 (>35)
[2018-08-06 07:03] LABS: ERYTHROCYTE SEDIMENTATION RATE 106 mm/hr (0-30)
[2018-08-06] MEDS: levETIRAcetam 250MG TABLET (KEPPRA) PO SCH ×2 (08:32→20:18)
[2018-08-06] MEDS: METOPROLOL TART 25 MG TABLET PO SCH ×2 (08:32→20:19)
[2018-08-06] MEDS: MAGNESIUM OXIDE 400 MG TAB (MAG-OX) PO SCH (08:32)
[2018-08-06] MEDS: APIXABAN 2.5 MG TAB (ELIQUIS) PO SCH ×2 (08:32→20:18)
[2018-08-06] MEDS: PRAVASTATIN 20 MG TAB PO SCH (08:32)
[2018-08-06] MEDS: AMIODARONE 100MG TABLET (PACERONE) PO SCH (08:32)
[2018-08-06] MEDS: FOLIC ACID 1 MG TAB PO SCH (08:32)
[2018-08-06] MEDS: ASPIRIN 81 MG ENTERIC TAB PO SCH (08:32)
[2018-08-06 10:00] VITALS: BP_SYST 119; BP_SYST 127; BP_DIAS 64; BP_DIAS 65
--- NOTE | 2018-08-06 10:35 | IPNPDOC ---
Subjective Date Seen The patient was seen on 08/06/18. Subjective Chief Complaint/HPI Patient is comfortable. Offers no complaints. Is complaining of generalized tiredness General: Reports: Other Symptoms (tiredness) Constitutional: Denies: Chills, Fever, Malaise, Night Sweats, Weakness, Fatigue, Weight Loss, Lethargy, Other Eyes: Denies: Pain, Vision change, Conjunctivae inflammation, Eyelid inflammation, Redness, Other ENT: Denies: Head Aches, Ear Pain, Dysphagia, Sinus Congestion, Post Nasal Drip, Sore Throat, Epistaxis, Other Symptoms Skin: Denies: Rash, Lesions, Jaundice, Bruising, Itching, Dry, Breakdown, Nail Changes, Other Pulmonary: Denies: Dyspnea, Cough, Pleuritic Chest Pain, Other Symptoms Cardiovascular: Denies: Chest Pain, Palpitations, Orthopnea, Paroxysmal Noc. Dyspnea, Edema, Lt Headedness, Other Symptoms Gastrointestinal: Denies: Nausea, Vomiting, Abdominal Pain, Diarrhea, Constipation, Melena, Hematochezia, Other Symptoms Genitourinary: Denies: Dysuria, Frequency, Incontinence, Hematuria, Retention, Other Symptoms Hematologic: Denies: Bruising, Bleeding Excessively, Petecchia, Purpura, Enlarged Lymph Nodes, Other Hematologic Endocrine: Denies: Polydipsia, Polyphagia, Polyuria, Heat Intolerance, Cold Intolerance, Other Endocrine Sx Musculoskeletal: Denies: Neck Pain, Back Pain, Shoulder Pain, Arm Pain, Hand Pain, Leg Pain, Foot Pain, Joint Pain, Muscle Pain, Spasms, Other Symptoms Neurological: Denies: Weakness, Numbness, Incoordination, Change in speech, Confusion, Seizures, Other Symptoms Objective Physical Examination General Exam: Positive: Alert, Cooperative, No Acute Distress Eye Exam: Positive: PERRLA ENT Exam: Positive: Atraumatic Neck Exam: Positive: Supple; Negative: JVD Chest Exam: Positive: Clear to auscultation, Normal air movement Heart Exam: Positive: Rate Normal, Regular Rhythm Abdomen Exam: Positive: Normal bowel sounds, Soft; Negative: Tenderness Extremity Exam: Positive: Normal pulses; Negative: Edema Skin Exam: Positive: Nl turgor and temperature, Lesion (as mentioned in HPI) Neuro Exam: Positive: Normal Speech, Strength at 5/5 X4 ext Psych Exam: Positive: Mental status NL, Mood NL Assessment /Plan Problems (1) Cellulitis and abscess of buttock Status: Acute Response to Treatment: Stable Problem Text: , MRSA bacteremia and positive MRSA and wound culture Patient on vancomycin, Vanco dose adjusted by pharmacy Infectious disease consult appreciated Discussed with Dr. maurice, and also discussed with cardiology. catalina Chaudhari, guarding getting RHEA, Dr. Renae was performed the RHEA on Wednesday Depending on the RHEA report. Patient will either get vancomycin for 2 weeks or 6 weeks Continue present care (2) Hypokalemia Status: Acute Problem Text: Resolved Plan/VTE VTE Prophylaxis Ordered?: Yes VTE Exclusion Mechanical Proph: N/A:VTE Prophy Ordered VTE Exclusion Pharmacological: N/A:VTE Prophy Ordered Plan Anticipated Discharge: Home VS, I&O, 24H, Fishbone Vital Signs/I&O Vital Signs Date Time Temp Pulse Resp B/P (MAP) Pulse Ox O2 Delivery O2 Flow Rate FiO2 08/06/18 10:00 98.6 78 22 127/64 (85) 96 I&O- Last 24 Hours up to 6 AM 08/06/18 06:00 Intake Total 2610 ml Output Total 1600 ml Balance 1010 ml Laboratory Data 24H LABS Laboratory Tests 2 08/06/18 05:55: Nucleated Red Blood Cells % (auto) 0.0, Erythrocyte Sedimentation Rate 106H, Anion Gap 6L, Glomerular Filtration Rate 34.4L, Blood Urea Nitrogen 41H, Creatinine 1.97H, Sodium Level 138, Potassium Level 4.0, Chloride Level 103, Carbon Dioxide Level 29, Calcium Level 8.5L, C-Reactive Protein, Quantitative 16.50H CBC/BMP Laboratory Tests 08/06/18 05:55 Red Blood Count 3.48 L, Mean Corpuscular Volume 96.6 H, Mean Corpuscular Hemoglobin 32.5, Mean Corpuscular Hemoglobin Concent 33.6, Red Cell Distribution Width 14.3, Calcium Level 8.5 L Microbiology Microbiology 08/03/18 Blood Culture - Preliminary, Resulted No Growth after 48 hours. All Specime... 07/31/18 Blood Culture - Final, Complete Staph.aureus Methicillin Resis 07/31/18 Gram Stain - Final, Complete 07/31/18 Wound Culture - Final, Complete Staph.aureus Methicillin Resis CHRISTOS FRANKEL MD August 06, 2018 10:35
--- NOTE | 2018-08-06 13:47 | ECHO ---
DATE OF PROCEDURE: 08/05/2018 DATE OF : 1930 AGE: 88 REFERRING PROVIDER: Dr. Blas Arizmendi and Dr. Dar Khalil REASON FOR ECHOCARDIOGRAM: Possible endocarditis. Sepsis. MEASUREMENTS 2-D Measurements: IVS: 1.4 cm LV: 4.4 cm LVPW: 1.3 cm LA: 4.7 cm Aorta: 3.9 cm IVC: 3.2 cm Doppler Measurements: Peak velocity across the aortic valve: 1.7 m/s Peak velocity across the LVOT: 0.87 m/s Mitral E: 0.68 Mitral A: 0.83 Ratio: 0.8 2-D COMMENTS: 1. Normal left ventricular size with mildly increased left ventricular wall thickness. Left ventricular systolic function is normal, estimated at 60-65%. 2. Mildly enlarged left atrium. Normal right atrium and right ventricle. 3. The atrial septum appeared to be normal without evidence of defect or shunt. 4. Mildly dilated aortic root at 3.9 cm. 5. The aortic valve, mitral valve, and tricuspid valve appeared to be normal. The pulmonic valve and proximal pulmonary artery branches were not well visualized. 6. The inferior vena cava was normal in size, central venous pressure might be normal. 7. Pacemaker wire artifact noted in the right heart chambers. DOPPLER: No significant valvular abnormalities detected. Abnormal relaxation pattern was noted across the mitral valve leaflets as well as the mitral valve annulus consistent with features of grade 1 left ventricular diastolic dysfunction. IMPRESSIONS: 1. Normal global left ventricular systolic function with mild concentric left ventricular hypertrophy. 2. Isolated mildly enlarged left atrium at 4.7 cm. 3. Mildly dilated aortic root at 3.9 cm. 4. Pacemaker wire artifacts noted in the right heart chambers. 5. No vegetations noted in this transthoracic echocardiogram. I recommend a transesophageal echocardiogram for further evaluation if endocarditis/vegetations is a concern. 6. This study was technically limited due to poor acoustic window. AMILCAR
[2018-08-06 14:00] VITALS: BP 132/70
[2018-08-06 18:00] VITALS: BP 158/86
--- NOTE | 2018-08-06 19:27 | PHACANCOPD ---
PHARMACY VANCOMYCIN DOSING Pt Demographics Demographics Patient Age:88 , Weight:65.700 , Gender: male Adjusted Body Weight Date: 07/31/18, Adjusted Body Weight: [63.5] Kg(ACTUAL WT) Events Past 24 Hours Events Past 24 Hours: NO: Dialysis, Diuretic Therapy, Change in CrCl, Fever, E levation in WBC, Pending Diagnostics, Pending Procedures, Other Vancomycin Vancomycin indication: BUTTOCK ABCESS,PNA Vancomycin Target Ranges: 15-20 mcg/ml Vancomycin Load Y/N: No Load Dose Date Time Vancomycin Load Dose: Date: Time: Vancomycin Dose Date: 07/31/18. Current Vancomycin Dose: [1 GM Q24H] Intermittent Dosing?: No Labs Labs Item Value Date Time White Blood Count 18.2 10^3/uL H 08/06/18 0555 Glomerular Filtration Rate 34.4 L 08/06/18 0555 Creatinine 1.97 MG/DL H 08/06/18 0555 Blood Urea Nitrogen 41 MG/DL H 08/06/18 0555 Vancomycin Level Trough 18.8 UG/ML 08/06/18 1843 Vital Signs Label Value Date Time Patient Temperature 98.1 degrees F 08/06/18 1800 Temperature Source Temporal 08/06/18 1800 Micro Microbiology 08/03/18 Blood Culture - Preliminary, Resulted No Growth after 72 hours. All specime... 07/31/18 Blood Culture - Final, Complete Staph.aureus Methicillin Resis 07/31/18 Gram Stain - Final, Complete 07/31/18 Wound Culture - Final, Complete Staph.aureus Methicillin Resis Creatinine Clearance Date:08/06/18. Creatinine Clearance: [24]. Assessment and Plan Maintaining Current Dose?: Yes Reason for dose change: No Dose Change Pharmacist Note Pharmacist Note Date: 07/31/18. Pharmacist note:Trough of 18.8 is within target range. Will continue current dosing. Will continue to monitor and make adjustments as needed. AUDREY W[facility]FE [facility] August 06, 2018 19:27
[2018-08-06] MEDS: VANCOMYCIN HCL 1,000 MG, VIAL MATE ADAPTER 1 EACH in D5W 250 ML IV SCH (20:04)
[2018-08-06 22:00] VITALS: BP 128/56
[2018-08-07 02:00] VITALS: BP 150/68
[2018-08-07 06:00] VITALS: BP 135/65
[2018-08-07 06:40] LABS: BASO % 0.2 % (0.0-1.0); EOS % 0.2 % (0.0-3.0); HEMOGLOBIN 9.7 g/dl (13.5-17.5); LYMPH # 2.8 10^3/uL (1.5-4.5); LYMPH % 17.1 % (24.0-44.0); MEAN CORPUSCULAR HEMOGLOBIN 31.2 pg (27.0-33.0); MEAN CORPUSCULAR HGB CONC 33.4 g/dl (32.0-36.5); MEAN CORPUSCULAR VOLUME 93.2 fl (80.0-96.0); MONO # 1.5 10^3/uL (0.0-0.8); MONO % 9.3 % (0.0-5.0); NEUTROPHILS # 11.5 10^3/uL (1.8-7.7); NEUTROPHILS % 70.1 % (36.0-66.0); PLATELET COUNT, AUTOMATED 447 10^3/uL (150-450); RED BLOOD COUNT 3.11 10^6/uL (4.30-6.10); WHITE BLOOD COUNT 16.4 10^3/uL (4.0-10.0)
[2018-08-07 07:09] LABS: ALBUMIN 1.5 GM/DL (3.2-5.2); BILIRUBIN,TOTAL 0.7 MG/DL (0.2-1.0); CALCIUM LEVEL 7.9 MG/DL (8.8-10.2); CREATININE FOR GFR 1.89 MG/DL (0.70-1.30); GLOMERULAR FILTRATION RATE 36.1 (>35); TOTAL PROTEIN 6.5 GM/DL (6.4-8.2)
[2018-08-07] MEDS: AMIODARONE 100MG TABLET (PACERONE) PO SCH (08:45)
[2018-08-07] MEDS: METOPROLOL TART 25 MG TABLET PO SCH ×2 (08:45→20:08)
[2018-08-07] MEDS: ASPIRIN 81 MG ENTERIC TAB PO SCH (08:45)
[2018-08-07] MEDS: APIXABAN 2.5 MG TAB (ELIQUIS) PO SCH ×2 (08:45→20:05)
[2018-08-07] MEDS: levETIRAcetam 250MG TABLET (KEPPRA) PO SCH ×2 (08:45→20:05)
[2018-08-07] MEDS: PRAVASTATIN 20 MG TAB PO SCH (08:45)
[2018-08-07] MEDS: FOLIC ACID 1 MG TAB PO SCH (08:45)
[2018-08-07] MEDS: MAGNESIUM OXIDE 400 MG TAB (MAG-OX) PO SCH (08:45)
[2018-08-07 10:00] VITALS: BP 124/63
--- NOTE | 2018-08-07 11:13 | IPNPDOC ---
Subjective Date Seen The patient was seen on 08/07/18. Subjective Chief Complaint/HPI Patient comfortable. Offers no new complaints General: Denies: ROS Unobtainable, Chills, Night Sweats, Fatigue, Malaise, No rmal Appetite, Other Symptoms Constitutional: Denies: Chills, Fever, Malaise, Night Sweats, Weakness, Fatigue, Weight Loss, Lethargy, Other Eyes: Denies: Pain, Vision change, Conjunctivae inflammation, Eyelid inflammation, Redness, Other ENT: Denies: Head Aches, Ear Pain, Dysphagia, Sinus Congestion, Post Nasal Drip, Sore Throat, Epistaxis, Other Symptoms Skin: Denies: Rash, Lesions, Jaundice, Bruising, Itching, Dry, Breakdown, Nail Changes, Other Pulmonary: Denies: Dyspnea, Cough, Pleuritic Chest Pain, Other Symptoms Cardiovascular: Denies: Chest Pain, Palpitations, Orthopnea, Paroxysmal Noc. Dyspnea, Edema, Lt Headedness, Other Symptoms Gastrointestinal: Denies: Nausea, Vomiting, Abdominal Pain, Diarrhea, Constipation, Melena, Hematochezia, Other Symptoms Genitourinary: Denies: Dysuria, Frequency, Incontinence, Hematuria, Retention, Other Symptoms Hematologic: Denies: Bruising, Bleeding Excessively, Petecchia, Purpura, Enlarged Lymph Nodes, Other Hematologic Endocrine: Denies: Polydipsia, Polyphagia, Polyuria, Heat Intolerance, Cold Intolerance, Other Endocrine Sx Musculoskeletal: Denies: Neck Pain, Back Pain, Shoulder Pain, Arm Pain, Hand Pain, Leg Pain, Foot Pain, Joint Pain, Muscle Pain, Spasms, Other Symptoms Neurological: Denies: Weakness, Numbness, Incoordination, Change in speech, Confusion, Seizures, Other Symptoms Psych: Denies: Mood Normal, Anxiety, Depression, Memory Issues, Thoughts of Self Harm, Anger, Thoughts of Harming Other, Other Psych Objective Physical Examination General Exam: Positive: Alert, Cooperative, No Acute Distress Eye Exam: Positive: PERRLA ENT Exam: Positive: Atraumatic Neck Exam: Positive: Supple; Negative: JVD Chest Exam: Positive: Clear to auscultation, Normal air movement Heart Exam: Positive: Rate Normal, Regular Rhythm Abdomen Exam: Positive: Normal bowel sounds, Soft; Negative: Tenderness Extremity Exam: Positive: Normal pulses; Negative: Edema Skin Exam: Positive: Nl turgor and temperature, Lesion (as mentioned in HPI) Neuro Exam: Positive: Normal Speech, Strength at 5/5 X4 ext Psych Exam: Positive: Mental status NL, Mood NL Assessment /Plan Problems (1) Cellulitis and abscess of buttock Status: Acute Response to Treatment: Stable Problem Text: , MRSA bacteremia and positive MRSA and wound culture Patient on vancomycin, Vanco dose adjusted by pharmacy Infectious disease consult appreciated Discussed with Dr. maurice, and also discussed with cardiology. catalina Chaudhari, guarding getting RHEA, Dr. Renae was performed the RHEA on Wednesday Depending on the RHEA report. Patient will either get vancomycin for 2 weeks or 6 weeks No new complaints. Continue present care (2) Hypokalemia Status: Acute Problem Text: Resolved Plan/VTE VTE Prophylaxis Ordered?: Yes VTE Exclusion Mechanical Proph: N/A:VTE Prophy Ordered VTE Exclusion Pharmacological: N/A:VTE Prophy Ordered Plan Anticipated Discharge: Home VS, I&O, 24H, Fishbone Vital Signs/I&O Vital Signs Date Time Temp Pulse Resp B/P (MAP) Pulse Ox O2 Delivery O2 Flow Rate FiO2 08/07/18 10:00 98.4 69 18 124/63 (83) 94 I&O- Last 24 Hours up to 6 AM 08/07/18 06:00 Intake Total 840 ml Output Total 1585 ml Balance -745 ml Laboratory Data 24H LABS Laboratory Tests 2 08/06/18 18:43: Vancomycin Level Trough 18.8 08/07/18 06:00: Immature Granulocyte % (Auto) 3.1H, White Blood Count 16.4H, Red Blood Count 3.11L, Hemoglobin 9.7L, Hematocrit 29.0L, Mean Corpuscular Volume 93.2, Mean Corpuscular Hemoglobin 31.2, Mean Corpuscular Hemoglobin Concent 33.4, Red Cell Distribution Width 14.4, Platelet Count 447, Neutrophils (%) (Auto) 70.1H, Lymphocytes (%) (Auto) 17.1L, Monocytes (%) (Auto) 9.3H, Eosinophils (%) (Auto) 0.2, Basophils (%) (Auto) 0.2, Neutrophils # (Auto) 11.5H, Lymphocytes # (Auto) 2.8, Monocytes # (Auto) 1.5H, Eosinophils # (Auto) 0.0, Basophils # (Auto) 0.0, Nucleated Red Blood Cells % (auto) 0.0, Anion Gap 7L, Glomerular Filtration Rate 36.1, Blood Urea Nitrogen 40H, Creatinine 1.89H, Sodium Level 139, Potassium Level 4.0, Chloride Level 104, Carbon Dioxide Level 28, Calcium Level 7.9L, Aspartate Amino Transf (AST/SGOT) 44H, Alanine Aminotransferase (ALT/SGPT) 59, Alkaline Phosphatase 320H, Total Bilirubin 0.7, Total Protein 6.5, Albumin 1.5L, Albumin/Globulin Ratio 0.30L CBC/BMP Laboratory Tests 08/07/18 06:00 Red Blood Count 3.11 L, Mean Corpuscular Volume 93.2, Mean Corpuscular H emoglobin 31.2, Mean Corpuscular Hemoglobin Concent 33.4, Red Cell Distribution Width 14.4, Neutrophils (%) (Auto) 70.1 H, Lymphocytes (%) (Auto) 17.1 L, Monocytes (%) (Auto) 9.3 H, Eosinophils (%) (Auto) 0.2, Basophils (%) (Auto) 0.2, Neutrophils # (Auto) 11.5 H, Lymphocytes # (Auto) 2.8, Monocytes # (Auto) 1.5 H, Eosinophils # (Auto) 0.0, Basophils # (Auto) 0.0, Calcium Level 7.9 L, Aspartate Amino Transf (AST/SGOT) 44 H, Alanine Aminotransferase (ALT/SGPT) 59, Alkaline Phosphatase 320 H, Total Bilirubin 0.7, Total Protein 6.5, Albumin 1.5 L Microbiology Microbiology 08/03/18 Blood Culture - Preliminary, Resulted No Growth after 72 hours. All specime... 07/31/18 Blood Culture - Final, Complete Staph.aureus Methicillin Resis 07/31/18 Gram Stain - Final, Complete 07/31/18 Wound Culture - Final, Complete Staph.aureus Methicillin Resis CHRISTOS FRANKEL MD August 07, 2018 11:13
[2018-08-07 14:00] VITALS: BP 131/69
[2018-08-07 18:00] VITALS: BP 129/67
[2018-08-07] MEDS: VANCOMYCIN HCL 1,000 MG, VIAL MATE ADAPTER 1 EACH in D5W 250 ML IV SCH (20:04)
[2018-08-07 22:00] VITALS: BP 142/68
[2018-08-08 02:00] VITALS: BP 138/68
[2018-08-08 06:00] VITALS: BP 136/60
[2018-08-08 06:03] LABS: HEMATOCRIT 31.1 % (42.0-52.0); HEMOGLOBIN 10.4 g/dl (13.5-17.5); MEAN CORPUSCULAR HEMOGLOBIN 32.1 pg (27.0-33.0); MEAN CORPUSCULAR HGB CONC 33.4 g/dl (32.0-36.5); PLATELET COUNT, AUTOMATED 507 10^3/uL (150-450); RED BLOOD COUNT 3.24 10^6/uL (4.30-6.10); WHITE BLOOD COUNT 15.4 10^3/uL (4.0-10.0)
[2018-08-08 06:30] LABS: CALCIUM LEVEL 8.2 MG/DL (8.8-10.2); CREATININE FOR GFR 1.94 MG/DL (0.70-1.30); POTASSIUM SERUM 4.6 MEQ/L (3.5-5.1)
[2018-08-08] MEDS: levETIRAcetam 250MG TABLET (KEPPRA) PO SCH ×2 (08:55→20:51)
[2018-08-08] MEDS: APIXABAN 2.5 MG TAB (ELIQUIS) PO SCH ×2 (08:55→20:50)
[2018-08-08] MEDS: MAGNESIUM OXIDE 400 MG TAB (MAG-OX) PO SCH (08:55)
[2018-08-08] MEDS: AMIODARONE 100MG TABLET (PACERONE) PO SCH (08:55)
[2018-08-08] MEDS: PRAVASTATIN 20 MG TAB PO SCH (08:55)
[2018-08-08] MEDS: ASPIRIN 81 MG ENTERIC TAB PO SCH (08:55)
[2018-08-08] MEDS: FOLIC ACID 1 MG TAB PO SCH (08:55)
[2018-08-08] MEDS: METOPROLOL TART 25 MG TABLET PO SCH ×2 (08:57→20:51)
[2018-08-08 10:00] VITALS: BP 134/70
[2018-08-08 14:00] VITALS: BP 118/63
[2018-08-08] MEDS: VANCOMYCIN HCL 1,000 MG, VIAL MATE ADAPTER 1 EACH in D5W 250 ML IV SCH (20:51)
[2018-08-09] VITALS (9 sets, daily range): BP systolic 110–147; BP diastolic 61–75
[2018-08-09 05:50] LABS: HEMATOCRIT 29.2 % (42.0-52.0); HEMOGLOBIN 9.6 g/dl (13.5-17.5); MEAN CORPUSCULAR HGB CONC 32.9 g/dl (32.0-36.5); MEAN CORPUSCULAR VOLUME 94.2 fl (80.0-96.0); PLATELET COUNT, AUTOMATED 525 10^3/uL (150-450); WHITE BLOOD COUNT 15.7 10^3/uL (4.0-10.0)
[2018-08-09 06:07] LABS: CALCIUM LEVEL 7.9 MG/DL (8.8-10.2); CREATININE FOR GFR 1.85 MG/DL (0.70-1.30); POTASSIUM SERUM 4.2 MEQ/L (3.5-5.1)
[2018-08-09] MEDS: APIXABAN 2.5 MG TAB (ELIQUIS) PO SCH ×2 (08:19→20:18)
--- NOTE | 2018-08-09 08:19 | IPN ---
DATE: 08/09/2018 I met Mr. Hoang this morning. I came to discuss transesophageal echocardiogram and obtain a consent. The patient was already aware of the procedure. I explained the rationale, the nature of the procedure, as well as potential complications. I left the consent form in his room. He was to read it but based on verbal communication he has no objections with proceeding. He currently has no specific complaints. PHYSICAL EXAMINATION: He is alert, oriented, appropriate. Blood pressure 137/66, heart rate has been 60 and 70s, afebrile. Saturation 91% on room air. Fluid balance yesterday was documented negative 600. Weight has not been documented this morning as yet. Jugular venous pressure is not up, if anything it seems to be dry. His lungs are relatively clear to auscultation. Heart exam reveals regular rhythm. I do not appreciate a gallop or rub. Abdomen is soft. Extremities are free of edema. Neurologically, he is somewhat slow but otherwise intact. LABORATORY: WBC count 15.7, hemoglobin 9.6, hematocrit 20 and platelet count 525,000. Basic metabolic panel: Sodium 140, potassium 4.2, BUN 41, creatinine 1.85 and glucose 91. ASSESSMENT/PLAN: Mr. Hoang is an 88-year-old man who came with infection on his buttocks and had methicillin resistant Staphylococcus aureus (MRSA) growing from his blood culture and also from wound culture. Based on recommendation of infectious disease, transesophageal echocardiogram is planned to rule out presence of endocarditis. The patient has a pacemaker, which further increases the concern. Clinically though it seems as to me that it is less likely. The procedure will be planned for this evening. The patient will be kept nothing by mouth after a light breakfast.
[2018-08-09] MEDS: PRAVASTATIN 20 MG TAB PO SCH (08:25)
[2018-08-09] MEDS: AMIODARONE 100MG TABLET (PACERONE) PO SCH (08:25)
[2018-08-09] MEDS: METOPROLOL TART 25 MG TABLET PO SCH ×2 (08:25→20:18)
[2018-08-09] MEDS: FOLIC ACID 1 MG TAB PO SCH (08:25)
[2018-08-09] MEDS: levETIRAcetam 250MG TABLET (KEPPRA) PO SCH ×2 (08:25→20:18)
[2018-08-09] MEDS: ASPIRIN 81 MG ENTERIC TAB PO SCH (08:26)
[2018-08-09] MEDS: MAGNESIUM OXIDE 400 MG TAB (MAG-OX) PO SCH (08:26)
--- NOTE | 2018-08-09 10:51 | IPNPDOC ---
Subjective Date Seen The patient was seen on 08/09/18. Subjective Chief Complaint/HPI Patient is stable. Offers no new complaints in no distress General: Denies: ROS Unobtainable, Chills, Night Sweats, Fatigue, Malaise, Normal Appetite, Other Symptoms Constitutional: Denies: Chills, Fever, Malaise, Night Sweats, Weakness, Fatigue, Weight Loss, Lethargy, Other Eyes: Denies: Pain, Vision change, Conjunctivae inflammation, Eyelid inflammation, Redness, Other ENT: Denies: Head Aches, Ear Pain, Dysphagia, Sinus Congestion, Post Nasal Drip, Sore Throat, Epistaxis, Other Symptoms Skin: Denies: Rash, Lesions, Jaundice, Bruising, Itching, Dry, Breakdown, Nail Changes, Other Pulmonary: Denies: Dyspnea, Cough, Pleuritic Chest Pain, Other Symptoms Cardiovascular: Denies: Chest Pain, Palpitations, Orthopnea, Paroxysmal Noc. Dyspnea, Edema, Lt Headedness, Other Symptoms Gastrointestinal: Denies: Nausea, Vomiting, Abdominal Pain, Diarrhea, Constipation, Melena, Hematochezia, Other Symptoms Genitourinary: Denies: Dysuria, Frequency, Incontinence, Hematuria, Retention, Other Symptoms Hematologic: Denies: Bruising, Bleeding Excessively, Petecchia, Purpura, Enlarged Lymph Nodes, Other Hematologic Endocrine: Denies: Polydipsia, Polyphagia, Polyuria, Heat Intolerance, Cold Intolerance, Other Endocrine Sx Musculoskeletal: Denies: Neck Pain, Back Pain, Shoulder Pain, Arm Pain, Hand Pain, Leg Pain, Foot Pain, Joint Pain, Muscle Pain, Spasms, Other Symptoms Neurological: Denies: Weakness, Numbness, Incoordination, Change in speech, Confusion, Seizures, Other Symptoms Psych: Denies: Mood Normal, Anxiety, Depression, Memory Issues, Thoughts of Self Harm, Anger, Thoughts of Harming Other, Other Psych Objective Physical Examination General Exam: Positive: Alert, Cooperative, No Acute Distress Eye Exam: Positive: PERRLA ENT Exam: Positive: Atraumatic Neck Exam: Positive: Supple; Negative: JVD Chest Exam: Positive: Clear to auscultation, Normal air movement Heart Exam: Positive: Rate Normal, Regular Rhythm Abdomen Exam: Positive: Normal bowel sounds, Soft; Negative: Tenderness Extremity Exam: Positive: Normal pulses; Negative: Edema Skin Exam: Positive: Nl turgor and temperature, Lesion (as mentioned in HPI) Neuro Exam: Positive: Normal Speech, Strength at 5/5 X4 ext Psych Exam: Positive: Mental status NL, Mood NL Assessment /Plan Problems (1) Cellulitis and abscess of buttock Status: Acute Response to Treatment: Stable Problem Text: , MRSA bacteremia and positive MRSA and wound culture Patient on vancomycin, Vanco dose adjusted by pharmacy Infectious disease consult appreciated Discussed with Dr. maurice, and also discussed with cardiology. catalina Chaudhari, guarding getting RHEA, RHEA is scheduled this afternoon Depending on the report. Patient will receive IV antibiotics for long-term If patient requires long-term SOLO IV antibiotic, then we will transfer patient to subacute facility (2) Hypokalemia Status: Resolved Problem Text: Resolved Plan/VTE VTE Prophylaxis Ordered?: Yes VTE Exclusion Mechanical Proph: N/A:VTE Prophy Ordered VTE Exclusion Pharmacological: N/A:VTE Prophy Ordered Plan Anticipated Discharge: Home VS, I&O, 24H, Fishbone Vital Signs/I&O Vital Signs Date Time Temp Pulse Resp B/P (MAP) Pulse Ox O2 Delivery O2 Flow Rate FiO2 08/09/18 10:00 98.7 62 16 110/67 (81) 93 I&O- Last 24 Hours up to 6 AM 08/09/18 06:00 Intake Total 1020 ml Output Total 1675 ml Balance -655 ml Laboratory Data 24H LABS Laboratory Tests 2 08/09/18 05:34: Nucleated Red Blood Cells % (auto) 0.0, Anion Gap 8, Glomerular Filtration Rate 37.0, Blood Urea Nitrogen 41H, Creatinine 1.85H, Sodium Level 140, Potassium Level 4.2, Chloride Level 102, Carbon Dioxide Level 30, Calcium Level 7.9L CBC/BMP Laboratory Tests 08/09/18 05:34 Red Blood Count 3.10 L, Mean Corpuscular Volume 94.2, Mean Corpuscular Hemoglobin 31.0, Mean Corpuscular Hemoglobin Concent 32.9, Red Cell Distribution Width 14.0, Calcium Level 7.9 L Microbiology Microbiology 08/03/18 Blood Culture - Final, Complete NO GROWTH AFTER 5 DAYS 07/31/18 Blood Culture - Final, Complete Staph.aureus Methicillin Resis 07/31/18 Gram Stain - Final, Complete 07/31/18 Wound Culture - Final, Complete Staph.aureus Methicillin Resis CHRISTOS FRANKEL MD August 09, 2018 10:51
[2018-08-09] MEDS ORDERED: CETACAINE SPRAY 5GM As Ordered ONE (16:55)
[2018-08-09] MEDS ORDERED: LIDOCAINE VISCOUS 2% SOLN 15ML UDC As Ordered ONE (16:55)
[2018-08-09] MEDS ORDERED: ePHEDrine SULFATE 25 MG/5 ML(5MG/ML) SYRINGE As Ordered ONE (17:40)
[2018-08-09] MEDS ORDERED: PHENYLephrine HCL 500 MCG/5 ML (100MCG/ML) SYRINGE (J2370) As Ordered ONE (17:40)
[2018-08-09] MEDS ORDERED: LIDOCAINE 2% INJ 100 MG/5 ML SDV (FOR ANES.) As Ordered ONE (17:40)
[2018-08-09] MEDS ORDERED: PROPOFOL 200 MG/20 ML VIAL As Ordered ONE (17:40)
[2018-08-09] MEDS ORDERED: fentaNYL 100 MCG/2 ML INJECTION (J3010) As Ordered ONE (17:40)
[2018-08-09] MEDS ORDERED: ONDANSETRON 4MG/2ML VIAL (J2405) IV PRN (18:15)
[2018-08-09] MEDS ORDERED: LR 1,000 ML IV SCH (18:15)
--- NOTE | 2018-08-09 18:26 | RO ---
DATE OF PROCEDURE: 08/09/2018 REFERRING PHYSICIAN: Dr. Ramirez INDICATION: MRSA bacteremia suspicion for endocarditis. ANESTHESIA: Tao [place] CRNA BRIEF HISTORY: Mr. Hoang is an 88-year-old man who came to the hospital with buttock infection. He grew MRSA from the wound but also from blood culture. Per infectious disease it was recommended that he undergo transesophageal echocardiogram to rule out endocarditis. I met with the patient the morning of the procedure. I explained the rationale, obtained the appropriate consent. He was kept nothing by mouth. PROCEDURE NOTE: The patient was brought to operating room in fasting condition. After appropriate time-out was obtained his posterior pharynx was anesthetized using viscous lidocaine and Cetacaine spray. Bite block was placed and secured by elastic band he was then positioned in left lateral decubital position. After appropriate sedation was accomplished, probe was introduced into his stomach and later a esophagus without any significant difficulty. After appropriate images were obtained it was withdrawn. The patient tolerated the procedure well and there were no immediate complications. FINDINGS: Left ventricle is normal systolic function, I estimate LVEF 60-65%. No wall motion abnormalities are appreciated. Right ventricle also appears normal. Both atria are at least mildly enlarged. Aortic valve has three cusps. It is pliable and I do not appreciate any abnormalities. By color Doppler imaging there is no significant stenosis or insufficiency. Mitral valve also exhibits fairly normal finding for his age with minimal degenerative abnormalities. Trace mitral insufficiency and no stenosis was noted. Tricuspid valve appears normal. No significant stenosis or insufficiency. Pulmonic valve was also well seen. It is pliable. No vegetations and no stenosis and mild insufficiency is noted. Left atrial appendage is relatively large and is free or thrombi. Flow in both left-sided and right-sided pulmonary veins is normal. Aortic septum is looking normal. There is no evidence for shunt based on two-dimensional and color Doppler imaging. There is also no evidence for shunt after injection of agitated saline. There is an echo artifact in right-sided chambers consistent with pacemaker lead. There is atherosclerosis of thoracic aorta but I do not appreciate any ulcerated plaques, thrombi or vegetations. CONCLUSIONS: 1. Preserved LV systolic function. 2. No significant valvular disease. 3. Intact atrial septum. 4. Left atrial appendage free of thrombi. 5. Pacemaker electrodes in right-sided heart chambers. 6. Atherosclerosis of thoracic aorta. COMMENT: No evidence for vegetations. MTDD
--- NOTE | 2018-08-09 20:03 | PHACANCOPD ---
PHARMACY VANCOMYCIN DOSING Pt Demographics Demographics Patient Age:88 , Weight:61.800 , Gender: male Adjusted Body Weight Vancomycin Vancomycin indication: BUTTOCK ABCESS,PNA Vancomycin Target Ranges: 15-20 mcg/ml Vancomycin Load Y/N: No Load Dose Date Time Vancomycin Load Dose: Date: Time: Vancomycin Dose Date: 08/09/18. Current Vancomycin Dose: [1 GM IV Q24H (20:00) DAY #24] Intermittent Dosing?: No Labs Labs Laboratory Tests 08/09/18 05:34 Red Blood Count 3.10 L, Mean Corpuscular Volume 94.2, Mean Corpuscular Hemoglobin 31.0, Mean Corpuscular Hemoglobin Concent 32.9, Red Cell Distribution Width 14.0, Calcium Level 7.9 L Micro Microbiology 08/03/18 Blood Culture - Final, Complete NO GROWTH AFTER 5 DAYS 07/31/18 Blood Culture - Final, Complete Staph.aureus Methicillin Resis 07/31/18 Gram Stain - Final, Complete 07/31/18 Wound Culture - Final, Complete Staph.aureus Methicillin Resis Creatinine Clearance Date:08/06/18. Creatinine Clearance: [24]. Pending Labs VANCO TROUGH 19:00 TODAY 22.3 mcg/ml Assessment and Plan Maintaining Current Dose?: No Reason for dose change: Trough too high Pharmacist Note Pharmacist Note Date: 08/09/18. PharmD note: VANCO Trough 22.3 mcg/ml EXCEEDS target range (15- 20). WE Will change current dose to VANCO 1GM IV Q36H STARTING AT 08:00 08/10/18. OF NOTE, RHEA WAS NEGATIVE TODAY PAUL DSOUZA [facility]ARM[facility] August 09, 2018 20:03
--- NOTE | 2018-08-09 20:26 | IPN ---
DATE: 08/09/2018 Mr. Hoang seems to be doing well. He was scheduled to have transesophageal echocardiogram this afternoon, I saw him just before the procedure. He still has pleuritic chest pain on the left side but that has improved. Buttock pain has improved where he had an ulcer. No nausea, vomiting or diarrhea. No abdominal pain. Transesophageal echocardiogram was done by Dr. Schwartz and was reviewed. He has a preserved left ventricular systolic function, ejection fraction 60-65%. No significant valvular disease. Intact atrial septum. Left atrial appendage free of thrombus. 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 No evidence of endocarditis. LABORATORY DATA: White count is 15.7, which is down from 24.9, hemoglobin 9.6, hematocrit 29.2, platelets 525. Sodium 140, potassium 4.2, chloride 102, bicarbonate 30, BUN 41, creatinine 1.85, glucose 91, calcium 7.9. C-reactive protein on 08/06 was 16.5, has not been repeated. Blood culture from 07/31 was positive for methicillin resistant Staphylococcus aureus (MRSA). Blood culture from 08/03 was negative. PHYSICAL EXAMINATION: On physical exam, temperature is 98.5, pulse 71, respirations 16, blood pressure 190/66, oxygen saturation 98% on 2 liters. HEART: Normal S1, S2. No murmurs appreciated. LUNGS: Diminished breath sounds at bases but clear. ABDOMEN: Soft, nontender. EXTREMITIES: No edema, buttock was not visualized today abscess because the patient was sitting on his chair. Chest x-ray Done on 08/04/2018 shows increased infiltrate in the left mid to lower lung, persistent nodular densities in the right lower lung. We had reviewed a chest x-ray with Dr. Vogel who felt that septic emboli was in the differential diagnosis. IMPRESSION: 1. Methicillin resistant Staphylococcus aureus (MRSA) abscess of the buttock, on IV vancomycin and doing better. Currently his dose is 1 gram every 24 hours. 2. Methicillin resistant Staphylococcus aureus (MRSA) bacteremia with pneumonia and possibly septic emboli to the lung as the patient has multiple peripheral nodules. 3. History of pacemaker insertion. At this point, the patient had a negative transesophageal echocardiogram but he would be considered as a complicated Staphylococcus aureus bacteremia since he has a pacemaker and evidence of septic emboli and therefore would recommend treating him with 4 weeks of IV antibiotics. PLAN: Continue IV vancomycin for total of 4 weeks due to risk of infection of hardware pacemaker. Not sure if the patient will be able to do home IV antibiotics, the dose will be 1 gram every 24 hours and the therapy will be August 31. He could have a midline placed tomorrow and we will discuss with family member if they would be able to do home IV antibiotics.
[2018-08-10 02:00] VITALS: BP 131/64
[2018-08-10 06:00] VITALS: BP 132/76
[2018-08-10 06:10] LABS: HEMATOCRIT 29.8 % (42.0-52.0); HEMOGLOBIN 9.8 g/dl (13.5-17.5); MEAN CORPUSCULAR HEMOGLOBIN 31.1 pg (27.0-33.0); MEAN CORPUSCULAR HGB CONC 32.9 g/dl (32.0-36.5); MEAN CORPUSCULAR VOLUME 94.6 fl (80.0-96.0); PLATELET COUNT, AUTOMATED 550 10^3/uL (150-450); RED BLOOD COUNT 3.15 10^6/uL (4.30-6.10); WHITE BLOOD COUNT 13.2 10^3/uL (4.0-10.0)
[2018-08-10 06:34] LABS: C REACTIVE PROTEIN QUANTITATIV 15.4 MG/DL (0.00-0.30); CALCIUM LEVEL 8.2 MG/DL (8.8-10.2); CREATININE FOR GFR 1.74 MG/DL (0.70-1.30); GLOMERULAR FILTRATION RATE 39.7 (>35); POTASSIUM SERUM 4.2 MEQ/L (3.5-5.1)
[2018-08-10] MEDS: PRAVASTATIN 20 MG TAB PO SCH (08:27)
[2018-08-10] MEDS: levETIRAcetam 250MG TABLET (KEPPRA) PO SCH ×2 (08:27→21:24)
[2018-08-10] MEDS: FOLIC ACID 1 MG TAB PO SCH (08:27)
[2018-08-10] MEDS: MAGNESIUM OXIDE 400 MG TAB (MAG-OX) PO SCH (08:27)
[2018-08-10] MEDS: ASPIRIN 81 MG ENTERIC TAB PO SCH (08:27)
[2018-08-10] MEDS: VANCOMYCIN HCL 1,000 MG, VIAL MATE ADAPTER 1 EACH in D5W 250 ML IV SCH (08:27)
[2018-08-10] MEDS: APIXABAN 2.5 MG TAB (ELIQUIS) PO SCH ×2 (08:27→21:24)
[2018-08-10] MEDS: METOPROLOL TART 25 MG TABLET PO SCH ×2 (08:28→21:24)
[2018-08-10] MEDS: AMIODARONE 100MG TABLET (PACERONE) PO SCH (09:00)
[2018-08-10 10:00] VITALS: BP 101/57
--- NOTE | 2018-08-10 11:37 | IPNPDOC ---
Subjective Date Seen The patient was seen on 08/10/18. Subjective Chief Complaint/HPI No new complaints. Patient had a RHEA done yesterday General: Denies: ROS Unobtainable, Chills, Night Sweats, Fatigue, Malaise, Normal Appetite, Other Symptoms Constitutional: Denies: Chills, Fever, Malaise, Night Sweats, Weakness, Fatigue, Weight Loss, Lethargy, Other Eyes: Denies: Pain, Vision change, Conjunctivae inflammation, Eyelid inflammation, Redness, Other ENT: Denies: Head Aches, Ear Pain, Dysphagia, Sinus Congestion, Post Nasal Drip, Sore Throat, Epistaxis, Other Symptoms Skin: Denies: Rash, Lesions, Jaundice, Bruising, Itching, Dry, Breakdown, Nail Changes, Other Pulmonary: Denies: Dyspnea, Cough, Pleuritic Chest Pain, Other Symptoms Cardiovascular: Denies: Chest Pain, Palpitations, Orthopnea, Paroxysmal Noc. Dyspnea, Edema, Lt Headedness, Other Symptoms Gastrointestinal: Denies: Nausea, Vomiting, Abdominal Pain, Diarrhea, Constipation, Melena, Hematochezia, Other Symptoms Genitourinary: Denies: Dysuria, Frequency, Incontinence, Hematuria, Retention, Other Symptoms Hematologic: Denies: Bruising, Bleeding Excessively, Petecchia, Purpura, Enlarged Lymph Nodes, Other Hematologic Endocrine: Denies: Polydipsia, Polyphagia, Polyuria, Heat Intolerance, Cold Intolerance, Other Endocrine Sx Musculoskeletal: Denies: Neck Pain, Back Pain, Shoulder Pain, Arm Pain, Hand Pain, Leg Pain, Foot Pain, Joint Pain, Muscle Pain, Spasms, Other Symptoms Neurological: Denies: Weakness, Numbness, Incoordination, Change in speech, Confusion, Seizures, Other Symptoms Psych: Denies: Mood Normal, Anxiety, Depression, Memory Issues, Thoughts of Self Harm, Anger, Thoughts of Harming Other, Other Psych Objective Physical Examination General Exam: Positive: Alert, Cooperative, No Acute Distress Eye Exam: Positive: PERRLA ENT Exam: Positive: Atraumatic Neck Exam: Positive: Supple; Negative: JVD Chest Exam: Positive: Clear to auscultation, Normal air movement Heart Exam: Positive: Rate Normal, Regular Rhythm Abdomen Exam: Positive: Normal bowel sounds, Soft; Negative: Tenderness Extremity Exam: Positive: Normal pulses; Negative: Edema Skin Exam: Positive: Nl turgor and temperature, Lesion (as mentioned in HPI) Neuro Exam: Positive: Normal Speech, Strength at 5/5 X4 ext Psych Exam: Positive: Mental status NL, Mood NL Assessment /Plan Problems (1) Cellulitis and abscess of buttock Status: Acute Response to Treatment: Stable Problem Text: , MRSA bacteremia and positive MRSA and wound culture Patient on vancomycin, Vanco dose adjusted by pharmacy RHEA was done yesterday and does not show any vegetation Discussed with Dr. saeed patient needs 4 weeks of IV Vanco and his last dose will be on 08/28/2018 Patient will need a PICC line for 20 more days of IV antibiotics Chaparro has been placed in Patient will be discharged to subacute rehabilitation facility once the PICC line is placed in Continue present care (2) Hypokalemia Status: Resolved Problem Text: Resolved Plan/VTE VTE Prophylaxis Ordered?: Yes VTE Exclusion Mechanical Proph: N/A:VTE Prophy Ordered VTE Exclusion Pharmacological: N/A:VTE Prophy Ordered Plan Anticipated Discharge: Home VS, I&O, 24H, [facility] Vital Signs/I&O Vital Signs Date Time Temp Pulse Resp B/P (MAP) Pulse Ox O2 Delivery O2 Flow Rate FiO2 08/10/18 10:00 97.8 60 17 101/57 (72) 95 08/09/18 20:00 2.0 I&O- Last 24 Hours up to 6 AM 08/10/18 06:00 Intake Total 1270 ml Output Total 1370 ml Balance -100 ml Laboratory Data 24H LABS Laboratory Tests 2 08/09/18 18:55: Vancomycin Level Trough 22.3H 08/10/18 05:44: Nucleated Red Blood Cells % (auto) 0.0, Anion Gap 6L, Glomerular Filtration Rate 39.7, Blood Urea Nitrogen 36H, Creatinine 1.74H, Sodium Level 140, Potassium Level 4.2, Chloride Level 103, Carbon Dioxide Level 31, Calcium Level 8.2L, C- Reactive Protein, Quantitative 15.40H CBC/BMP Laboratory Tests 08/10/18 05:44 Red Blood Count 3.15 L, Mean Corpuscular Volume 94.6, Mean Corpuscular Hemog lobin 31.1, Mean Corpuscular Hemoglobin Concent 32.9, Red Cell Distribution Width 14.0, Calcium Level 8.2 L Microbiology Microbiology 08/10/18 Blood Culture, Received Pending 08/03/18 Blood Culture - Final, Complete NO GROWTH AFTER 5 DAYS 07/31/18 Blood Culture - Final, Complete Staph.aureus Methicillin Resis 07/31/18 Gram Stain - Final, Complete 07/31/18 Wound Culture - Final, Complete Staph.aureus Methicillin Resis CHRISTOS FRANKEL MD August 10, 2018 11:37
[2018-08-10 14:00] VITALS: BP 113/57
[2018-08-10] MEDS ORDERED: LIDOCAINE 1% MDV 20ML VIAL As Ordered ONE (15:27)
[2018-08-10] MEDS ORDERED: SODIUM CHLORIDE 0.9% INJ 10 ML SYR IV PRN (17:00)
--- NOTE | 2018-08-10 17:00 | REP ---
PICC line insertion under ultrasound guidance. The procedure was performed by FAIZAN Clement, under the direct supervision of Dr. Sapp. The risks and benefits of the procedure were explained to the patient and informed consent was obtained the verbally and written. Directly prior to the start of the procedure, a formal timeout was completed in the procedure room. The right basilic vein was localized using ultrasound guidance. The skin was prepped and draped in the sterile fashion. 3 ml 1% lidocaine was used as a local anesthetic. Using ultrasound guidance the right basilic vein was cannulated and a 0.018 guidewire was inserted and advanced to the SVC using fluoroscopic guidance. The needle was removed and a 4.5 Nepali dilator and peel-away sheath was inserted over the guidewire. A 4.5 Nepali single lumen catheter was cut to the length of 30 cm. The dilator was removed and the catheter was inserted over the guide wire with the tip ending in the SVC. The peel-away sheath was removed and the catheter was flushed with heparinized saline as per hospital protocol. The catheter was affixed to the skin and a sterile dressing was applied. The patient tolerated the procedure well and there were no immediate complications. 0.1 minutes of fluoroscopy time was utilized for this procedure. Reviewed by FAIZAN Monreal 08/10/2018 04:41 P Electronically Signed by Tan Sapp MD 08/10/2018 04:52 P
[2018-08-10] MEDS: SODIUM CHLORIDE 0.9% INJ 10 ML SYR IV SCH (17:12)
[2018-08-10 18:00] VITALS: BP 120/60
[2018-08-10 22:00] VITALS: BP 137/65
[2018-08-11 02:00] VITALS: BP 120/68
[2018-08-11] MEDS: SODIUM CHLORIDE 0.9% INJ 10 ML SYR IV SCH ×2 (05:04→17:01)
[2018-08-11 06:00] VITALS: BP 121/70
[2018-08-11 06:06] LABS: HEMATOCRIT 29.3 % (42.0-52.0); HEMOGLOBIN 9.7 g/dl (13.5-17.5); MEAN CORPUSCULAR HGB CONC 33.1 g/dl (32.0-36.5); MEAN CORPUSCULAR VOLUME 96.7 fl (80.0-96.0); PLATELET COUNT, AUTOMATED 513 10^3/uL (150-450); RED BLOOD COUNT 3.03 10^6/uL (4.30-6.10); WHITE BLOOD COUNT 11.6 10^3/uL (4.0-10.0)
[2018-08-11 06:33] LABS: CALCIUM LEVEL 8.6 MG/DL (8.8-10.2); CREATININE FOR GFR 1.89 MG/DL (0.70-1.30); GLOMERULAR FILTRATION RATE 36.1 (>35); POTASSIUM SERUM 4.2 MEQ/L (3.5-5.1)
[2018-08-11] MEDS: levETIRAcetam 250MG TABLET (KEPPRA) PO SCH ×2 (09:30→21:06)
[2018-08-11] MEDS: ASPIRIN 81 MG ENTERIC TAB PO SCH (09:30)
[2018-08-11] MEDS: APIXABAN 2.5 MG TAB (ELIQUIS) PO SCH ×2 (09:30→21:06)
[2018-08-11] MEDS: MAGNESIUM OXIDE 400 MG TAB (MAG-OX) PO SCH (09:30)
[2018-08-11] MEDS: PRAVASTATIN 20 MG TAB PO SCH (09:30)
[2018-08-11] MEDS: AMIODARONE 100MG TABLET (PACERONE) PO SCH (09:30)
[2018-08-11] MEDS: FOLIC ACID 1 MG TAB PO SCH (09:30)
[2018-08-11] MEDS: METOPROLOL TART 25 MG TABLET PO SCH ×2 (09:31→21:06)
[2018-08-11 10:00] VITALS: BP 150/74
--- NOTE | 2018-08-11 11:54 | IPNPDOC ---
Subjective Date Seen The patient was seen on 08/11/18. Subjective Chief Complaint/HPI Patient is comfortable, had a PICC line placed and offered no new complaints General: Denies: ROS Unobtainable, Chills, Night Sweats, Fatigue, Malaise, Normal Appetite, Other Symptoms Constitutional: Denies: Chills, Fever, Malaise, Night Sweats, Weakness, Fatigue, Weight Loss, Lethargy, Other Eyes: Denies: Pain, Vision change, Conjunctivae inflammation, Eyelid inflammation, Redness, Other ENT: Denies: Head Aches, Ear Pain, Dysphagia, Sinus Congestion, Post Nasal Drip, Sore Throat, Epistaxis, Other Symptoms Skin: Denies: Rash, Lesions, Jaundice, Bruising, Itching, Dry, Breakdown, Nail Changes, Other Pulmonary: Denies: Dyspnea, Cough, Pleuritic Chest Pain, Other Symptoms Cardiovascular: Denies: Chest Pain, Palpitations, Orthopnea, Paroxysmal Noc. Dyspnea, Edema, Lt Headedness, Other Symptoms Gastrointestinal: Denies: Nausea, Vomiting, Abdominal Pain, Diarrhea, Constipation, Melena, Hematochezia, Other Symptoms Genitourinary: Denies: Dysuria, Frequency, Incontinence, Hematuria, Retention, Other Symptoms Hematologic: Denies: Bruising, Bleeding Excessively, Petecchia, Purpura, Enlarged Lymph Nodes, Other Hematologic Endocrine: Denies: Polydipsia, Polyphagia, Polyuria, Heat Intolerance, Cold Intolerance, Other Endocrine Sx Musculoskeletal: Denies: Neck Pain, Back Pain, Shoulder Pain, Arm Pain, Hand Pain, Leg Pain, Foot Pain, Joint Pain, Muscle Pain, Spasms, Other Symptoms Neurological: Denies: Weakness, Numbness, Incoordination, Change in speech, Confusion, Seizures, Other Symptoms Objective Physical Examination General Exam: Positive: Alert, Cooperative, No Acute Distress Eye Exam: Positive: PERRLA ENT Exam: Positive: Atraumatic Neck Exam: Positive: Supple; Negative: JVD Chest Exam: Positive: Clear to auscultation, Normal air movement Heart Exam: Positive: Rate Normal, Regular Rhythm Abdomen Exam: Positive: Normal bowel sounds, Soft; Negative: Tenderness Extremity Exam: Positive: Normal pulses; Negative: Edema Skin Exam: Positive: Nl turgor and temperature, Lesion (as mentioned in HPI) Neuro Exam: Positive: Normal Speech, Strength at 5/5 X4 ext Psych Exam: Positive: Mental status NL, Mood NL Assessment /Plan Problems (1) Cellulitis and abscess of buttock Status: Acute Response to Treatment: Stable Problem Text: , MRSA bacteremia and positive MRSA and wound culture Patient on vancomycin, Vanco dose adjusted by pharmacy RHEA was done yesterday and does not show any vegetation Discussed with Dr. saeed patient needs 4 weeks of IV Vanco and his last dose will be on 08/28/2018 Patient will need a PICC line for IV antibiotics till 08/28/2018 PICC line has been placed in Awaiting placement in subacute rehabilitation facility (2) Hypokalemia Status: Resolved Problem Text: Resolved Plan/VTE VTE Prophylaxis Ordered?: Yes VTE Exclusion Mechanical Proph: N/A:VTE Prophy Ordered VTE Exclusion Pharmacological: N/A:VTE Prophy Ordered Plan Anticipated Discharge: Home VS, I&O, 24H, [facility] Vital Signs/I&O Vital Signs Date Time Temp Pulse Resp B/P (MAP) Pulse Ox O2 Delivery O2 Flow Rate FiO2 08/11/18 10:00 97.8 93 18 150/74 (99) 95 08/09/18 20:00 2.0 I&O- Last 24 Hours up to 6 AM 08/11/18 06:00 Intake Total 1210 ml Output Total 1255 ml Balance -45 ml Laboratory Data 24H LABS Laboratory Tests 2 08/11/18 05:46: Nucleated Red Blood Cells % (auto) 0.0, Anion Gap 6L, Glomerular Filtration Rate 36.1, Blood Urea Nitrogen 38H, Creatinine 1.89H, Sodium Level 140, Potassium Level 4.2, Chloride Level 105, Carbon Dioxide Level 29, Calcium Level 8.6L CBC/BMP Laboratory Tests 08/11/18 05:46 Red Blood Count 3.03 L, Mean Corpuscular Volume 96.7 H, Mean Corpuscular H emoglobin 32.0, Mean Corpuscular Hemoglobin Concent 33.1, Red Cell Distribution Width 14.1, Calcium Level 8.6 L Microbiology Microbiology 08/10/18 Blood Culture - Preliminary, Resulted No growth after 24 hours . All specim... 08/03/18 Blood Culture - Final, Complete NO GROWTH AFTER 5 DAYS CHRISTOS FRANKEL MD August 11, 2018 11:54
[2018-08-11 14:00] VITALS: BP 147/74
[2018-08-11 18:00] VITALS: BP 143/68
[2018-08-11] MEDS: VANCOMYCIN HCL 1,000 MG, VIAL MATE ADAPTER 1 EACH in D5W 250 ML IV SCH (21:05)
[2018-08-11 22:00] VITALS: BP 147/70
[2018-08-12 02:00] VITALS: BP 137/69
[2018-08-12 06:00] VITALS: BP 146/73
[2018-08-12] MEDS: SODIUM CHLORIDE 0.9% INJ 10 ML SYR IV SCH (06:27)
[2018-08-12] MEDS ORDERED: VANC1INJ IV (07:59)
--- NOTE | 2018-08-12 08:02 | DS.PDOC ---
Discharge Summary General Date of Admission July 30, 2018 at 23:32 Date of Discharge 08/12/2018 Attending Physician: CHRISTOS FRANKEL MD Discharge Summary PROCEDURES PERFORMED DURING STAY: None. ADMITTING DIAGNOSES: 1. Wound at left buttock. DISCHARGE DIAGNOSES: 1. MRSA infection of the wound of left buttock, MRSA bacteremia. COMPLICATIONS/CHIEF COMPLAINT: Pneumonia,Cellulitis. HISTORY OF PRESENT ILLNESS: Mr. Hoang is an 88 years old man who presented to [facility] ER yesterday afternoon for evaluation of progressive pain and swelling on the left Buttock after reportedly bitten by a bee. In the ER, pt was afebrile and hemodynamically stable. he had a WBC of 25K and a Lactate level of 2.5. There is very tender 4 x cm hard subcutaneous induration with central skin opening and yellow pus in the area. He was given a dose IV Zosyn in the ER and transferred here for further care because they did not have bed for admission at [facility].. HOSPITAL COURSE: Patient was initially admitted for abscess of left buttock, he had an I&D done by surgery and cultures were sent off. Patient was empirically started on vancomycin. Blood cultures came up positive for MRSA and vancomycin was continued. Patient's blood cultures also came out positive for MRSA. ID consult with Dr. Siegel was called and recommended IV vancomycin for 4 weeks total. Patient's last dose of IV vancomycin will be on 08/28/2018. Vancomycin dose was adjusted by pharmacy. He is receiving vancomycin 1 g IV every 36 hours. Patient had a PICC line placed and for IV access and will be transferred to subacute rehabilitation facility to finish his course of antibiotics All home medication will be continued as well. Please refer to patient's medical record for further information . DISCHARGE MEDICATIONS: Please see below. ALLERGIES: Please see below. PHYSICAL EXAMINATION ON DISCHARGE: VITAL SIGNS: Please see below. GENERAL: Normal HEENT: PERRLA NECK: Supple, no JVD, no lymphadenopathy CARDIOVASCULAR EXAMINATION: S1, S2, regular RESPIRATORY EXAMINATION: Clear to A&P ABDOMINAL EXAMINATION: Benign EXTREMITIES: No clubbing, cyanosis, edema SKIN: Testing at the left buttock NEUROLOGICAL EXAMINATION: No motor focal sensory deficit PSYCHIATRIC EXAMINATION: Normal LABORATORY DATA: Please see below. IMAGING: As per EMR PROGNOSIS: Good ACTIVITY: As tolerated. DIET: As tolerated DISCHARGE PLAN: Discharge to subacute rehabilitation facility to finish IV antibiotics DISPOSITION: . Subacute rehabilitation facility DISCHARGE INSTRUCTIONS: 1. As above. ITEMS TO FOLLOWUP ON ON OUTPATIENT: 1. As above. DISCHARGE CONDITION: Stable. TIME SPENT ON DISCHARGE: 42 minutes. Vital Signs/I&Os Vital Signs Date Time Temp Pulse Resp B/P (MAP) Pulse Ox O2 Delivery O2 Flow Rate FiO2 08/12/18 06:00 98.6 67 18 146/73 (97) 93 08/09/18 20:00 2.0 I&O- Last 24 Hours up to 6 AM 08/12/18 06:00 Intake Total 1280 ml Output Total 1450 ml Balance -170 ml Microbiology Microbiology 08/10/18 Blood Culture - Preliminary, Resulted No Growth after 48 hours. All Specime... 08/03/18 Blood Culture - Final, Complete NO GROWTH AFTER 5 DAYS Discharge Medications Scheduled Amiodarone HCl (Pacerone) 100 Mg Tablet, 100 MG PO DAILY, (Reported) Apixaban (Eliquis) 2.5 Mg Tab, 2.5 MG PO BID, (Reported) Aspirin (Aspir 81) 81 Mg Tab, 81 MG PO DAILY, (Reported) Folic Acid (Folic Acid) 1 Mg Tab, 1 MG PO DAILY, (Reported) Furosemide (Furosemide) 40 Mg Tab, 40 MG PO DAILY, (Reported) Levetiracetam (Levetiracetam) 250 Mg Tablet, 250 MG PO BID, (Reported) Magnesium Oxide (Magnesium Oxide) 400 Mg Tab, 400 MG PO DAILY, (Reported) Metoprolol Tartrate (Metoprolol Tartrate) 25 Mg Tab, 25 MG PO BID, (Reported) Potassium Chloride (Potassium Chloride) 10 Meq Tab, 10 MEQ PO DAILY, (Reported) Pravastatin Sodium (Pravastatin Sodium) 20 Mg Tab, 20 MG PO DAILY, (Reported) Vancomycin/0.9 % Sod Chloride (Vanco 1 Gram/250 ml-0.9% NaCl) 1 Gm/250 Ml Plast..bag, 1 INJ IV Q36H Scheduled PRN Acetaminophen/Caffeine (Excedrin Tension Headache Cplt) 1 Each Tablet, 1 EACH PO Q6H PRN for HEADACHE OR PAIN, (Reported) Miscellaneous Medications [Patient Comments] , (Reported) PATIENT STATES HE'S REASONABLY SURE THE LAST TIME HE TOOK HIS MEDICATIONS WAS 2 DAYS AGO. (07/28/2018) Allergies Coded Allergies: No Known Allergies (Unverified , 01/20/18) CHRISTOS FRANKEL MD August 12, 2018 08:02
[2018-08-12 08:17] VITALS: BP 146/73
[2018-08-12] MEDS: APIXABAN 2.5 MG TAB (ELIQUIS) PO SCH (08:17)
[2018-08-12] MEDS: ASPIRIN 81 MG ENTERIC TAB PO SCH (08:17)
[2018-08-12] MEDS: MAGNESIUM OXIDE 400 MG TAB (MAG-OX) PO SCH (08:17)
[2018-08-12] MEDS: FOLIC ACID 1 MG TAB PO SCH (08:17)
[2018-08-12] MEDS: METOPROLOL TART 25 MG TABLET PO SCH (08:17)
[2018-08-12] MEDS: AMIODARONE 100MG TABLET (PACERONE) PO SCH (08:17)
[2018-08-12] MEDS: PRAVASTATIN 20 MG TAB PO SCH (08:17)
[2018-08-12] MEDS: levETIRAcetam 250MG TABLET (KEPPRA) PO SCH (08:17)
[2018-08-12 10:00] VITALS: BP 130/56
== END 2018-08-12 12:22 | DRG 603 ==
LOC: M PCU 23:32 → EEVIPCON 23:32 → M MSPAV 08-01 11:53
PROVIDERS: ADMIT Internal Medicine; ATTEND Internal Medicine
PROC: B246ZZ4 Ultrasonography of Right and Left Heart, Transesophageal (ICD-10-PCS; 2018-08-09)
PROC: 30233N1 Transfusion of Nonautologous Red Blood Cells into Peripheral Vein, Percutaneous Approach (ICD-10-PCS; principal; 2018-08-10)
DX: L03.317 Cellulitis of buttock (principal); R78.81 Bacteremia; B95.62 Methicillin resistant Staphylococcus aureus infection as the cause of diseases classified elsewhere; Z79.82 Long term (current) use of aspirin; Z79.899 Other long term (current) drug therapy; I50.9 Heart failure, unspecified; I11.0 Hypertensive heart disease with heart failure; J44.9 Chronic obstructive pulmonary disease, unspecified; I48.91 Unspecified atrial fibrillation; Z86.711 Personal history of pulmonary embolism; Z86.718 Personal history of other venous thrombosis and embolism; Z79.01 Long term (current) use of anticoagulants; E78.5 Hyperlipidemia, unspecified; E87.6 Hypokalemia; Z95.0 Presence of cardiac pacemaker

== ENCOUNTER → 2018-10-11 | Outpatient (REF) | payer MEDICARE ==
[~2018-10-11] MED LIST changes: +AMIO10TA PO; +BACK500T PO; +EXCETAB44 PO; +LEVE250T5 PO; +PATIENT COMMENTS; +VANC1INJ IV
[2018-10-11 18:16] LABS: COMPLEMENT C3 113 MG/DL (90-180); COMPLEMENT C4 27 MG/DL (10-40)
[2018-10-18 00:07] LABS: ANCA-ATYPICAL <1:20 titer (Neg:<1:20); ANTI DS-DNA AB <1:10 titer (.); ANTI-GLOMERULAR BASEMENT MEMB 10 units (0-20); ANTINUCLEAR ANTIBODIES DIRECT Negative (Negative); CYTOPLASMIC NEUTROP AB ANCA-C <1:20 titer (Neg:<1:20); PERINUCLEAR AB ANCA-P <1:20 titer (Neg:<1:20)
== END ==
LOC: M LAB REF 17:26
PROVIDERS: ATTEND Internal Medicine Nephrology
DX: R80.9 Proteinuria, unspecified (principal); R31.9 Hematuria, unspecified

== ENCOUNTER → 2019-01-17 | Outpatient (REF) | payer MEDICARE ==
[~2019-01-17] MED LIST changes: -VANC1INJ IV; +VANC1PLA6 IV
[2019-01-17 17:18] LABS: INR 1.19; PROTHROMBIN TIME 14.9 SECONDS (11.8-14.0)
[2019-01-17 17:20] LABS: PARTIAL THROMBOPLASTIN TIME 40.7 SECONDS (25.0-38.4)
== END ==
LOC: M LAB REF 16:44
PROVIDERS: ATTEND Internal Medicine Nephrology
DX: N18.4 Chronic kidney disease, stage 4 (severe) (principal); R31.9 Hematuria, unspecified; Z79.01 Long term (current) use of anticoagulants